=== PATIENT | female | born 1935 | race Caucasian/White ===

== ENCOUNTER 2017-01-03 16:48 | Inpatient (IN) | payer OTHER, BC ==
[2017-01-03 16:59] VITALS: BMI 20.5
--- NOTE | 2017-01-03 17:12 | PDOC ---
History of Present Illness - General History Source: Patient, Family Exam Limitations: No Limitations - History of Present Illness Initial Comments: 01/03/17 18:41 The patient is an 81 year old female with a significant PMH of glaucoma in left eye and mild Alzheimers who presents to the emergency department with loss of balance and generalized weakness beginning approximately yesterday night. The patient reports finding herself on the floor being unable to remember how she got there and unable to stand for about an hour. The patient reports associated lightheadedness beginning about 3 days ago that reached a peak yesterday night. The patient notes that she has fallen 2 or 3 times within the past week without sustaining any injuries, but denies falling yesterday night. The patient was given a cane about 1 year ago to assist her walking, but she has not frequently used it. The patient and her family visited Dr. Joshi (PCP) this morning, who requested that the patient come into the ED. The patient denies chest pain and shortness of breath. Denies fever, chills, nausea, vomit, diarrhea and constipation. Denies dysuria, frequency, urgency and hematuria. Allergies: Sulfonamide antibiotics. Past surgical history: None reported. Social history: Former smoker. No reported alcohol or drug use. PCP: Dr. Joshi (Referred the patient to ED) <Fernando Gr - Last Filed: 01/03/17 18:41> <Carlito Castanon - Last Filed: 01/03/17 19:44> <Elliott Tamez - Last Filed: 01/03/17 19:57> - General Chief Complaint: Lightheaded Stated Complaint: DIZZINESS (PCP SENT) Time Seen by Provider: 01/03/17 17:11 Past History <Fernando Gr - Last Filed: 01/03/17 18:41> <Carlito Castanon - Last Filed: 01/03/17 19:44> - Past Medical History Dementia: Yes (EARLY ALZHEIMERS) Other medical history: GLAUCOMA - Psycho/Social/Smoking Cessation Hx Suicidal Ideation: No Smoking History: Former smoker Have you smoked in the past 12 months: No Information on smoking cessation initiated: No <Elliott Tamez - Last Filed: 01/03/17 19:57> - Past Medical History Allergies/Adverse Reactions: Allergies Allergy/AdvReac Type Severity Reaction Status Date / Time Sulfa (Sulfonamide Allergy Verified 01/03/17 16:53 Antibiotics) Home Medications: Ambulatory Orders Travoprost [Travatan Z] 2.5 ml OP ASDIR 01/03/17 Review of Systems - Review of Systems Constitutional: No: Chills, Fever, Unintentional Wgt. Loss HEENTM: No: Recent change in vision Respiratory: No: Cough, Shortness of Breath Cardiac (ROS): Yes: Lightheadedness. No: Chest Pain ABD/GI: No: Diarrhea, Vomiting : Yes: Dysuria Musculoskeletal: No: Muscle Pain Neurological: Yes: Weakness, Unsteady Gait. No: Headache All Other Systems: Reviewed and Negative <Elliott Tamez - Last Filed: 01/03/17 19:57> *Physical Exam - Vital Signs Last Vital Signs Temp Pulse Resp BP Pulse Ox 98.4 F 90 19 139/78 97 01/03/17 16:52 01/03/17 16:52 01/03/17 16:52 01/03/17 16:52 01/03/17 16:52 - Physical Exam Comments: 01/03/17 18:41 GENERAL: The patient is awake, alert, and fully oriented, in no acute distress. HEAD: Normal with no signs of trauma. EYES: Pupils equal, round and reactive to light, extraocular movements intact, sclera anicteric, conjunctiva clear with no pallor. ENT: (+) Dry mucosa. Ears normal, nares patent, oropharynx clear without exudates. NECK: Normal range of motion, supple without lymphadenopathy, JVD, or masses. LUNGS: Breath sounds equal, clear to auscultation bilaterally. No wheeze/ crackles. HEART: Regular rate and rhythm, normal S1 and S2 without murmur or rub. ABDOMEN: Soft/nontender/nondistended. BS wnl. No guarding or rebound. No palpable masses. No hepatosplenomegaly. EXTREMITIES: Normal range of motion, no edema. No clubbing or cyanosis. No cords, erythema, or tenderness. NEUROLOGICAL: (+) Unsteady gait. Cranial nerves II through XII grossly intact. Normal speech PSYCH: Normal mood, normal affect. SKIN: Warm, Dry, normal turgor, no rashes or lesions noted. <Fernando Gr - Last Filed: 01/03/17 18:41> - Vital Signs Last Vital Signs Temp Pulse Resp BP Pulse Ox 98.4 F 90 19 139/78 97 01/03/17 16:52 01/03/17 16:52 01/03/17 16:52 01/03/17 16:52 01/03/17 16:52 <Carlito Castanon - Last Filed: 01/03/17 19:44> - Vital Signs Last Vital Signs Temp Pulse Resp BP Pulse Ox 98.4 F 90 19 139/78 97 01/03/17 16:52 01/03/17 16:52 01/03/17 16:52 01/03/17 16:52 01/03/17 16:52 <Elliott Tamez - Last Filed: 01/03/17 19:57> Heart Score/ECG Review #1 ECG reviewed & interpreted by me at: 17:58 General ECG Interpretation: Sinus Rhythm, Normal Rate (74), Normal Intervals ( qtc 410), No acute ischemic changes (q wave III/AVF, no ST changes) <Elliott Tamez - Last Filed: 01/03/17 19:57> ED Treatment Course - LABORATORY CBC & Chemistry Diagram: 01/03/17 18:10 01/03/17 18:10 <Fernando Gr - Last Filed: 01/03/17 18:41> - LABORATORY CBC & Chemistry Diagram: 01/03/17 18:10 01/03/17 18:10 - ADDITIONAL ORDERS Additional order review: Laboratory Results 01/03/17 01/03/17 01/03/17 18:12 18:10 18:10 INR Sodium 140 Potassium 3.9 Chloride 105 Carbon Dioxide 27 Anion Gap 8 BUN 21 H Creatinine 0.7 Creat Clearance w eGFR > 60 Random Glucose 88 Calcium 9.0 Magnesium 2.4 Total Bilirubin 0.4 AST 25 ALT 24 Alkaline Phosphatase 81 Creatine Kinase 137 Troponin I < 0.02 Total Protein 6.6 Albumin 3.9 Urine Color Straw Urine Appearance Clear Urine pH 6.0 Urine Protein Negative Urine Glucose (UA) Negative Urine Ketones Negative Urine Blood 1+ H Urine Nitrite Negative Urine Bilirubin Negative Urine Urobilinogen Negative Ur Leukocyte Esterase Trace Urine RBC <1 Urine WBC <1 01/03/17 18:10 INR 1.06 Sodium Potassium Chloride Carbon Dioxide Anion Gap BUN Creatinine Creat Clearance w eGFR Random Glucose Calcium Magnesium Total Bilirubin AST ALT Alkaline Phosphatase Creatine Kinase Troponin I Total Protein Albumin Urine Color Urine Appearance Urine pH Urine Protein Urine Glucose (UA) Urine Ketones Urine Blood Urine Nitrite Urine Bilirubin Urine Urobilinogen Ur Leukocyte Esterase Urine RBC Urine WBC 01/03/17 18:10 RBC 4.13 MCV 93.4 MCHC 34.1 RDW 13.9 MPV 8.7 Neutrophils % 69.8 Lymphocytes % 16.6 Monocytes % 11.3 H Eosinophils % 1.4 Basophils % 0.9 - Medications Given in the ED: ED Medications Discontinued Medications Generic Name Dose Route Start Last Admin Trade Name Freq PRN Reason Stop Dose Admin Sodium Chloride 500 mls @ 500 mls/hr 01/03/17 18:38 01/03/17 19:05 Normal Saline - IV 01/03/17 19:37 500 mls/hr ONCE ONE Administration <Carlito Castanon - Last Filed: 01/03/17 19:44> - LABORATORY CBC & Chemistry Diagram: 01/03/17 18:10 01/03/17 18:10 <Elliott Tamez - Last Filed: 01/03/17 19:57> Medical Decision Making - Medical Decision Making 01/03/17 19:[address] Laird @19:37pm. Awaiting Call back. <Carlito Castanon - Last Filed: 01/03/17 19:44> - Medical Decision Making 01/03/17 18:34 A portion of this note was documented by scribe services under my direction. I have reviewed the details of the note, within reason, and agree with the documentation with the following case summary and management plan written by me. 81-year-old female with history of mild Alzheimer's presents with generalized weakness and unsteady gait for several days. Nonspecific complaints of having difficulty ambulating, felt 2-3 times in the last few days. Denies any head injury, denies any focal weakness, denies any headache. No chest pain or infectious complaints. Vital signs as noted and within normal limits. Exam as noted, occasionally forgetful, neurologically grossly intact but had some difficulty with heel-to-toe ambulation 81-year-old female with new onset weakness over the last few days, gait instability with falls. Most likely metabolic or infectious, seems less likely focal neurologic process. Labs, urinalysis EKG, chest x-ray, head CT IV fluid hydration Reassess, likely admission 01/03/17 19:55 labs wnl: no leukocytosis, chem normal including trop, UA clear. CT without acute pathology. Clinically unchanged. ? microvascular ischemia, ? need for PT eval. Discussed with patient and family, agree with admission given relatively acute change from baseline. Accepted for inpatient med/surg by Dr. Laird, admitting for Dr. Joshi. Will obtain neuro and PT eval. <Elliott Tamez - Last Filed: 01/03/17 19:57> *DC/Admit/Observation/Transfer - Attestations Scribe Attestion: 01/03/17 18:42 Documentation prepared by Fernando Gr, acting as emergency medical service coordinator for Elliott Tamez MD. <Fernando Gr - Last Filed: 01/03/17 18:41> <Carlito Castanon - Last Filed: 01/03/17 19:44> - Discharge Dispostion Admit: Yes <Elliott Tamez - Last Filed: 01/03/17 19:57> Diagnosis at time of Disposition: Frequent falls, Generalized weakness - Discharge Dispostion Condition at time of disposition: Fair - Referrals Referrals: Anaya Joshi [Primary Care Provider] -
[2017-01-03] MEDS ORDERED: SODIUM CHLORIDE 1,000 ML IV ONE (18:07)
[2017-01-03] MEDS ORDERED: SODIUM CHLORIDE 500 ML IV ONE (18:38)
[2017-01-03 18:44] LABS: BASOPHIL 0.9 % (0-2.0); EOSINOPHIL 1.4 % (0-4.5); MCH 31.9 pg (25.7-33.7); MCHC 34.1 g/dl (32.0-36.0); MEAN CELL VOLUME 93.4 fl (80-96); MEAN PLT VOLUME 8.7 fl (7.5-11.1); NEUTROPHILS 69.8 % (42.8-82.8); PLATELET COUNT 171 K/MM3 (134-434); RDW 13.9 % (11.6-15.6); WHITE BLOOD COUNT 4.7 K/mm3 (4.0-10.0)
[2017-01-03 18:49] LABS: URINE APPEARANCE CLEAR; URINE BILIRUBIN NEGATIVE (NEGATIVE); URINE BLOOD 1+ (NEGATIVE); URINE COLOR STRAW; URINE GLUCOSE (UA) NEGATIVE (NEGATIVE); URINE KETONE NEGATIVE (NEGATIVE); URINE LEUK ESTERASE TRACE (NEGATIVE); URINE NITRITE NEGATIVE (NEGATIVE); URINE PROTEIN NEGATIVE (NEGATIVE); URINE UROBILINOGEN NEGATIVE mg/dL (0.2-1.0)
[2017-01-03 18:59] LABS: URINE RBC <1 /hpf (0-3); URINE WBC <1 /hpf (3-5)
[2017-01-03 19:06] LABS: INR 1.06 (0.82-1.09); PROTHROMBIN TIME (PATIENT) 11.7 SEC (9.98-11.88)
[2017-01-03 19:15] LABS: ALBUMIN 3.9 g/dl (3.4-5.0); ANION GAP 8 (8-16); BILIRUBIN,TOTAL 0.4 mg/dL (0.2-1.0); CO2 27 mmol/L (21-32); CPK 137 IU/L (26-192); CREATININE 0.7 mg/dL (0.55-1.02); GLUCOSE,RANDOM 88 mg/dL (74-106); SGOT/AST 25 U/L (15-37); SGPT/ALT 24 U/L (12-78); TOT PROT 6.6 g/dl (6.4-8.2)
[2017-01-03 19:17] LABS: ALK PHOS 81 U/L (45-117); TROPONIN I < 0.02 ng/ml (0.00-0.05)
[2017-01-03] MEDS ORDERED: ACETAMINOPHEN 325 MG TABLET (FP) PO PRN (22:56)
[2017-01-03] MEDS ORDERED: DEXTROSE 5%-0.45% SALINE 1,000 ML IV SCH (23:00)
[2017-01-04 07:30] LABS: BASOPHIL 0.8 % (0-2.0); EOSINOPHIL 1.7 % (0-4.5); MCH 32.1 pg (25.7-33.7); MCHC 34.4 g/dl (32.0-36.0); MEAN CELL VOLUME 93.1 fl (80-96); NEUTROPHILS 69.9 % (42.8-82.8); PLATELET COUNT 149 K/MM3 (134-434); RDW 13.7 % (11.6-15.6); WHITE BLOOD COUNT 4.1 K/mm3 (4.0-10.0)
[2017-01-04 08:01] LABS: ALBUMIN 3.4 g/dl (3.4-5.0); ANION GAP 8 (8-16); CO2 28 mmol/L (21-32); CREATININE 0.6 mg/dL (0.55-1.02); MAGNESIUM 2.2 mg/dL (1.8-2.4); SGOT/AST 21 U/L (15-37); SGPT/ALT 20 U/L (12-78)
[2017-01-04 08:08] LABS: ALK PHOS 68 U/L (45-117); BILIRUBIN,TOTAL 0.5 mg/dL (0.2-1.0); CALCIUM 9.1 mg/dL (8.5-10.1); CHOLESTEROL 203 mg/dL (50-200); GLUCOSE,RANDOM 110 mg/dL (74-106); PHOSPHOROUS 3.1 mg/dL (2.5-4.9); TOT PROT 5.7 g/dl (6.4-8.2)
--- NOTE | 2017-01-04 08:58 | EKG ---
Test Reason : Blood Pressure : / mmHG Vent. Rate : 077 BPM Atrial Rate : 077 BPM P-R Int : 160 ms QRS Dur : 066 ms QT Int : 380 ms P-R-T Axes : 077 -22 053 degrees QTc Int : 430 ms NORMAL SINUS RHYTHM INFERIOR INFARCT (CITED ON OR BEFORE 03-JAN-2017) ABNORMAL ECG WHEN COMPARED WITH ECG OF 03-JAN-2017 17:58, MINIMAL CRITERIA FOR ANTEROSEPTAL INFARCT ARE NO LONGER PRESENT Confirmed by SHARIF CABRERA MD ([id number]) on 01/04/2017 8:57:45 AM Referred By: JOY DICKENS Confirmed By:SHARIF CABRERA MD
--- NOTE | 2017-01-04 09:01 | EKG ---
Test Reason : Blood Pressure : / mmHG Vent. Rate : 074 BPM Atrial Rate : 074 BPM P-R Int : 166 ms QRS Dur : 056 ms QT Int : 370 ms P-R-T Axes : 058 -24 022 degrees QTc Int : 410 ms NORMAL SINUS RHYTHM POSSIBLE LEFT ATRIAL ENLARGEMENT LOW VOLTAGE QRS INFERIOR INFARCT , AGE UNDETERMINED CANNOT RULE OUT ANTEROSEPTAL INFARCT , AGE UNDETERMINED ABNORMAL ECG NO PREVIOUS ECGS AVAILABLE Confirmed by SHARIF CABRERA MD ([id number]) on 01/04/2017 9:00:58 AM Referred By: Confirmed By:SHARIF CABRERA MD
[2017-01-04] MEDS ORDERED: HEPARIN NA (PORCINE) 5,000 UNITS/ML 1ML VIAL SQ SCH (10:00)
[2017-01-04] MEDS ORDERED: PANTOPRAZOLE 20 MG TABLET (FP) PO SCH (10:00)
--- NOTE | 2017-01-04 11:03 | CON.CARD ---
Cardiology Consult (text) - Consultation Consultation Note: cc: fall, trouble with balance hpi: 81 f hx glaucoma, mild dementia, here s/p fall, trouble with balance. Pt reports occasional issues with balance and falls recently. The other night she reports getting up from bed and feeling dizzy and thinks she fell, does not remember well. No cp, sob, palps, pnd, orthopnea, le edema. She denies loc. No hx hrt dz. pmh: per hpi psh: nc social: ex tob fam: no premature cad, scd ros: per hpi; no nvd, fever, cough, dysuria, hematuria, gib, vision changes, chavez , wt loss meds: Home Medications Medication Instructions Recorded Travoprost [Travatan Z] 2.5 ml OP ASDIR 01/03/17 pe: Vital Signs Period Temp Pulse Resp BP Sys/Etienne Pulse Ox Last 24 Hr 97.7 F-98.4 F 69-90 18-20 126-144/69-81 97-98 nad no jvd rrr s1s2 no mrg cta bl nl eff awake, alert appropriate abd nt nd pos bs no jaundice diaphoresis +dp pt no carotid bruits no le e/c/c Laboratory Last Values WBC 4.1 K/mm3 (4.0-10.0) 01/04/17 05:35 RBC 3.96 M/mm3 (3.60-5.2) 01/04/17 05:35 Hgb 12.7 GM/dL (10.7-15.3) 01/04/17 05:35 Hct 36.9 % (32.4-45.2) 01/04/17 05:35 MCV 93.1 fl (80-96) 01/04/17 05:35 MCH 32.1 pg (25.7-33.7) 01/04/17 05:35 MCHC 34.4 g/dl (32.0-36.0) 01/04/17 05:35 RDW 13.7 % (11.6-15.6) 01/04/17 05:35 Plt Count 149 K/MM3 (134-434) 01/04/17 05:35 MPV 9.0 fl (7.5-11.1) 01/04/17 05:35 Neutrophils % 69.9 % (42.8-82.8) 01/04/17 05:35 Lymphocytes % 15.1 % (8-40) 01/04/17 05:35 Monocytes % 12.5 % (3.8-10.2) H 01/04/17 05:35 Eosinophils % 1.7 % (0-4.5) 01/04/17 05:35 Basophils % 0.8 % (0-2.0) 01/04/17 05:35 INR 1.06 (0.82-1.09) 01/03/17 18:10 Sodium 144 mmol/L (136-145) 01/04/17 05:35 Potassium 3.8 mmol/L (3.5-5.1) 01/04/17 05:35 Chloride 108 mmol/L (98-107) H 01/04/17 05:35 Carbon Dioxide 28 mmol/L (21-32) 01/04/17 05:35 Anion Gap 8 (8-16) 01/04/17 05:35 BUN 14 mg/dL (7-18) D 01/04/17 05:35 Creatinine 0.6 mg/dL (0.55-1.02) 01/04/17 05:35 Creat Clearance w eGFR > 60 (>60) 01/04/17 05:35 Random Glucose 110 mg/dL (74-106) H D 01/04/17 05:35 Calcium 9.1 mg/dL (8.5-10.1) 01/04/17 05:35 Phosphorus 3.1 mg/dL (2.5-4.9) 01/04/17 05:35 Magnesium 2.2 mg/dL (1.8-2.4) 01/04/17 05:35 Total Bilirubin 0.5 mg/dL (0.2-1.0) D 01/04/17 05:35 AST 21 U/L (15-37) 01/04/17 05:35 ALT 20 U/L (12-78) 01/04/17 05:35 Alkaline Phosphatase 68 U/L (45-117) 01/04/17 05:35 Creatine Kinase 137 IU/L (26-192) 01/03/17 18:10 Troponin I < 0.02 ng/ml (0.00-0.05) 01/03/17 18:10 Total Protein 5.7 g/dl (6.4-8.2) L 01/04/17 05:35 Albumin 3.4 g/dl (3.4-5.0) 01/04/17 05:35 Triglycerides 55 mg/dL (35-160) 01/04/17 05:35 Cholesterol 203 mg/dL (50-200) H 01/04/17 05:35 Total LDL Cholesterol 75 mg/dL (5-100) 01/04/17 05:35 HDL Cholesterol 110 mg/dL (40-60) H 01/04/17 05:35 Urine Color Straw 01/03/17 18:12 Urine Appearance Clear 01/03/17 18:12 Urine pH 6.0 (5.0-8.0) 01/03/17 18:12 Ur Specific [place] 1.010 (1.005-1.025) 01/03/17 18:12 Urine Protein Negative (NEGATIVE) 01/03/17 18:12 Urine Glucose (UA) Negative (NEGATIVE) 01/03/17 18:12 Urine Ketones Negative (NEGATIVE) 01/03/17 18:12 Urine Blood 1+ (NEGATIVE) H 01/03/17 18:12 Urine Nitrite Negative (NEGATIVE) 01/03/17 18:12 Urine Bilirubin Negative (NEGATIVE) 01/03/17 18:12 Urine Urobilinogen Negative mg/dL (0.2-1.0) 01/03/17 18:12 Ur Leukocyte Esterase Trace (NEGATIVE) 01/03/17 18:12 Urine RBC <1 /hpf (0-3) 01/03/17 18:12 Urine WBC <1 /hpf (3-5) 01/03/17 18:12 Blood Type A POSITIVE 01/03/17 18:10 Antibody Screen Negative 01/03/17 18:10 tele: sr, artifact head ct: no acute findings cxr: clear lungs ecg 01/03/17: sr, nl intervals, no ischemic changes a/p: 81 f hx glaucoma, mild dementia, here s/p fall, trouble with balance. fall, dizzy, balance issues: -no obvious cardiac etiology at present -ecg unremarkable, tele benign -check orthostatic vs -check echo -neuro consulted -consider PT eval
[2017-01-04 15:18] VITALS: BP 138/85; PULSE 76; TEMP 98.7
--- NOTE | 2017-01-04 17:21 | PN ---
Progress Note (short form) - Note Progress Note: patient seen and examined in her room son in law at bedside states clinically at baseline all testing reviewed / discussed with family Vital Signs Period Temp Pulse Resp BP Sys/Etienne Pulse Ox Last 24 Hr 97.7 F-98.7 F 69-86 18-20 126-144/69-85 98-98 neck supple heart S1/S2 regular Lungs clear bilat abd soft non tender ext no edema CBC, BMP 01/04/17 05:35 01/04/17 05:35 Home Medications Medication Instructions Recorded Travoprost [Travatan Z] 2.5 ml OP ASDIR 01/03/17 s/p fall probably mechanical consider arrythmia / neurological event seen by Neuro and Cardio telemetry reviewed -- no findings Plan Ok to d/c home discuss with family safety and follow up
--- NOTE | 2017-01-04 17:34 | CONSULT ---
Consult - text type - Consultation Consultation Note: NEUROLOGY CONSULTATION is greatly appreciated: This 81 yo RH woman with mild OMS lives in an assisted environment. H/O Glaucoma of gtts. Given a cane to stabilize her gait x 1 year. She has had a few falls over the last week and comes in after a fall with amnesia for surrounding events such as prodromal symptoms. No evidence for head trauma or infection. CT of head (reviewed): Moderate, diffuse atrophy with ventricular enlargement and scattered microvascular changes. Cardiology eval unremarkable. BIRDIE: No head trauma. No bruits, cor reg. NEURO: Awake, alert, cooperative. Ox3. Recalls 3 of 3 @ 3. No frontal release findings. CN: II-XII: normal without nystagmus. Motor: Min Right drift. Normal strength and reflexes. Toes downgoing. Sl reduced [id number].Normal reflexes. Toes downgoing. Coord: No FTN dystaxia Sensory: Normal Romberg neg Gait: Slightly wide-based and shuffling. Unsteady with turns. IMP: Mild B/L cerebral dysfunction. Moderate senile gait dyspraxia- possibly out of proportion to OMS Mild Left cerebral accentuation possibly suggesting a lacunar infarct. 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 Suggest: Check B12, TSH MRI of brain (Non-contrast). PT for gait with walker ASA 81 mg qd Neuro f/u as out patient. Thank you very much, Ramses Orona MD
== END 2017-01-04 18:12 | disposition home or self-care (01) | DRG 57 ==
LOC: JER 16:48 → JERBED 19:57 → UNDOADMIN 20:05 → JERBED 20:05 → J4W 23:28
PROVIDERS: ADMIT Family Medicine; ATTEND Family Medicine
DX: G30.8 Other Alzheimer's disease (principal); G91.2 (Idiopathic) normal pressure hydrocephalus; R29.6 Repeated falls; R27.8 Other lack of coordination; F02.80 Dementia in other diseases classified elsewhere, unspecified severity, without behavioral disturbance, psychotic disturbance, mood disturbance, and anxiety; G93.89 Other specified disorders of brain; H40.89 Other specified glaucoma; R53.1 Weakness; Z87.891 Personal history of nicotine dependence
CPT/HCPCS: 36415; 70450-TC; 71020-TC; 80053; 80061; 81003; 81015; 83721; 83735; 84100; 84484; 85025; 85610; 86850; 86900; 86901; 87086; 87186; 93005; 93010; 93306-TC; 99285-25; J1644

== ENCOUNTER 2017-01-21 06:15 | Emergency (ER) | payer OTHER, BC ==
[2017-01-21 06:30] VITALS: BMI 20.5
[2017-01-21] MEDS ORDERED: SODIUM CHLORIDE 0.9% 1000 ML INFUS.BAG IV ONE (07:34)
--- NOTE | 2017-01-21 08:01 | PDOC ---
History of Present Illness - General History Source: Patient Exam Limitations: No Limitations - History of Present Illness Initial Comments: 01/21/17 08:08 81 y/o F with a PMHx of glaucoma, frequent falls presents to the ED with lightheadedness this morning. Patient was able to walk to the bathroom and back to bed, but felt unbalanced and thought she was going to fall. She states the lightheadedness is worsened with lying to sitting up. She called her daughter who called EMS. Patient states it never happened before. There is no clear vertigo. Patient reports some dysuria yesterday. She denies weakness, numbness, tingling. She denies chest pain, SOB. Denies back pain. Denies fever, chills. <Catalina Schafer - Last Filed: 01/21/17 10:02> <Yoselin Vega - Last Filed: 01/21/17 12:26> - General Chief Complaint: Lightheaded Stated Complaint: DIZZINESS Time Seen by Provider: 01/21/17 07:07 Past History <Catalina Schafer - Last Filed: 01/21/17 10:02> - Past Medical History Dementia: Yes (EARLY ALZHEIMERS) - Suicide/Smoking/Psychosocial Hx Smoking History: Never smoked Have you smoked in the past 12 months: No Information on smoking cessation initiated: No Hx Alcohol Use: No Drug/Substance Use Hx: No Substance Use Type: None <Yoselin Vega - Last Filed: 01/21/17 12:26> - Past Medical History Allergies/Adverse Reactions: Allergies Allergy/AdvReac Type Severity Reaction Status Date / Time Sulfa (Sulfonamide Allergy Verified 01/03/17 16:53 Antibiotics) Home Medications: Ambulatory Orders Travoprost [Travatan Z] 2.5 ml OP ASDIR 01/03/17 Cephalexin [Keflex] 500 mg PO TID #21 capsule 01/21/17 Review of Systems - Review of Systems Able to Perform ROS?: Yes Comments:: 01/21/17 08:08 GENERAL/CONSTITUTIONAL: No fever or chills. No weakness. HEAD, EYES, EARS, NOSE AND THROAT: No change in vision. No ear pain or discharge. No sore throat. CARDIOVASCULAR: No chest pain or shortness of breath. RESPIRATORY: No cough, wheezing, or hemoptysis. GASTROINTESTINAL: No nausea, vomiting, diarrhea or constipation. GENITOURINARY: (+) dysuria. No frequency, or other change in urination. MUSCULOSKELETAL: No joint or muscle swelling or pain. No neck or back pain. SKIN: No rash NEUROLOGIC: (+) lightheadedness. No headache, loss of consciousness, or change in strength/sensation. ENDOCRINE: No increased thirst. No abnormal weight change. HEMATOLOGIC/LYMPHATIC: No anemia, easy bleeding, or history of blood clots. ALLERGIC/IMMUNOLOGIC: No hives or skin allergy. <Lizz Schaferobbrittani Unger - Last Filed: 01/21/17 10:02> *Physical Exam - Vital Signs Last Vital Signs Temp Pulse Resp BP Pulse Ox 98.4 F 68 16 139/83 98 01/21/17 07:28 01/21/17 07:28 01/21/17 07:28 01/21/17 07:28 01/21/17 07:28 - Physical Exam Comments: 01/21/17 08:08 GENERAL: Awake, alert, and fully oriented, in no acute distress HEAD: No signs of trauma EYES: PERRLA, EOMI, sclera anicteric, conjunctiva clear ENT: Auricles normal inspection, nares patent, oropharynx clear without exudates. Moist mucosa NECK: Normal ROM, supple, no lymphadenopathy, JVD, or masses LUNGS: Breath sounds equal, clear to auscultation bilaterally. No wheezes, and no crackles HEART: Regular rate and rhythm, normal S1 and S2, no murmurs, rubs or gallops ABDOMEN: Soft, nontender, normoactive bowel sounds. No guarding, no rebound. No masses EXTREMITIES: Normal range of motion, no edema. No clubbing or cyanosis. No cords, erythema, or tenderness NEUROLOGICAL: Cranial nerves II through XII grossly intact. Normal speech, normal gait. Normal xsyryr-ot-lphm. Normal alternating hand movements. Negative Bib-hallpike. Negative Romberg. 5/5 strength. SKIN: Warm, Dry, normal turgor, no rashes or lesions noted. <Lizz Schaferobhan Ute - Last Filed: 01/21/17 10:02> - Vital Signs Last Vital Signs Temp Pulse Resp BP Pulse Ox 98.4 F 68 16 139/83 98 01/21/17 07:28 01/21/17 07:28 01/21/17 07:28 01/21/17 07:28 01/21/17 07:28 <Souleymane Vegaa - Last Filed: 01/21/17 12:26> Heart Score/ECG Review #1 General ECG Interpretation: Sinus Rhythm, Normal Rate (61 bpm), Normal Intervals , No acute ischemic changes <Souleymane Vegaa - Last Filed: 01/21/17 12:26> ED Treatment Course - LABORATORY CBC & Chemistry Diagram: 01/21/17 08:00 01/21/17 08:00 - ADDITIONAL ORDERS Additional order review: Laboratory Results 01/21/17 07:12 POC Glucometer [id number] 01/21/17 07:12 POC Glucometer [id number] - RADIOLOGY Radiograph Interpretation: 01/21/17 10:02 Chest X-Ray Reported by Dr. Carlito Davenport Impression: No evidence of active pulmonary disease. - Medications Given in the ED: ED Medications Discontinued Medications Generic Name Dose Route Start Last Admin Trade Name Freq PRN Reason Stop Dose Admin Sodium Chloride 1,000 ml 01/21/17 07:34 01/21/17 07:48 Normal Saline - IV 01/21/17 07:35 1,000 ml ONCE ONE Administration <Catalina Schafer - Last Filed: 01/21/17 10:02> - LABORATORY CBC & Chemistry Diagram: 01/21/17 08:00 01/21/17 08:00 - ADDITIONAL ORDERS Additional order review: Laboratory Results 01/21/17 07:12 POC Glucometer [id number] 01/21/17 07:12 POC Glucometer [id number] - RADIOLOGY Radiology Studies Ordered: Category Date Time Status CHEST PA & LAT [RAD] Stat Radiology 01/21/17 07:33 Ordered Chest X-Ray Result: No Infiltrates - Medications Given in the ED: ED Medications Discontinued Medications Generic Name Dose Route Start Last Admin Trade Name Freq PRN Reason Stop Dose Admin Sodium Chloride 1,000 ml 01/21/17 07:34 01/21/17 07:48 Normal Saline - IV 01/21/17 07:35 1,000 ml ONCE ONE Administration <Souleymane Vegaa - Last Filed: 01/21/17 12:26> Medical Decision Making - Medical Decision Making 01/21/17 07:55 81 yo F with h/o frequent falls. here with episode of near syncope. pt states she was trying to walk to the bathroom, became very lightheaded. thought she would fall or faint so holding onto roberts. no loc. no cp or palpitations. no f/ c no abd or flank pain. does report recent dysuria. feels better with sitting now, but feels lightheaded with standing. no other complaints. was admitted 2 weeks ago for similar complaints at which time she actually had a fall. on exam awake alert head atraumatic. dry mucous membranes. lungs normal heart rrr nomrg. ab soft ntnd. ext wwp no edema. 2 + dp/ pt pulses symmetric. nuero: normal finger to nose, heel to emmanuel, alt hand movements, gait normal, neg romberg, neg bib hallpike. CN intact , strength 5/5 throughout. differential: uti, anemia, dehydration, dysrhtymia, infection such as pneumonia , mi. plan labs ua urine culture iv hydration, cxr reassess. 01/21/17 11:03 labs unremarkalbe. ua negative only 3 wbc. hydrated normal saline. ekg normal. cxr negative for acute changes. 01/21/17 12:19 pt has been treated for recent uti, but noncompliant. was on ciprofloxacin, not taking. feel s improved followig iv fluids. d/w son in law at bedside. ok with pt going home. told will need someone to stay with patient. have meeting tomorrow to get approval for home health aid payment to be covered by insurance. told to return for worseing symptoms pt seen ambulating here in ED stable. will treat for symptomatic partially treated UTI. with keflex 500 mg tidx 1 week. follow up recommended with pcp. <Yoselin Vega - Last Filed: 01/21/17 12:26> *DC/Admit/Observation/Transfer - Attestations Scribe Attestion: 01/21/17 08:08 Documentation prepared by Catalina Schafer, acting as biomedical engineering internship for Yoselin Vega MD. <Catalina Schafer - Last Filed: 01/21/17 10:02> - Discharge Dispostion Admit: No <Yoselin Vega - Last Filed: 01/21/17 12:26> Diagnosis at time of Disposition: Dehydration, UTI (urinary tract infection) - Discharge Dispostion Disposition: HOME Condition at time of disposition: Improved - Prescriptions Prescriptions: Cephalexin [Keflex] 500 mg PO TID #21 capsule - Referrals Referrals: Chayito Laird MD [Staff Physician] - - Patient Instructions Printed Discharge Instructions: Urinary Tract Infection, Dehydration Additional Instructions: you can stop taking ciprofloxacin. you should take keflex 500 mg three times daily x one week. follow up with Dr. Marin this week. call to schedule. return for feeling dizzy or lightheaded, chest pain or any concerns. all of your labs today are normal. and your ekg and cxr are also normal. see blood work attached. be sure to eat and drink plenty of fluids.
[2017-01-21 08:11] LABS: BASOPHIL 0.8 % (0-2.0); EOSINOPHIL 0.5 % (0-4.5); MCH 31.6 pg (25.7-33.7); MCHC 33.9 g/dl (32.0-36.0); MEAN CELL VOLUME 93.3 fl (80-96); MEAN PLT VOLUME 8.2 fl (7.5-11.1); NEUTROPHILS 76.4 % (42.8-82.8); PLATELET COUNT 170 K/MM3 (134-434); RDW 13.7 % (11.6-15.6)
[2017-01-21 08:34] LABS: ALBUMIN 3.8 g/dl (3.4-5.0); ANION GAP 7 (8-16); BILIRUBIN,TOTAL 0.4 mg/dL (0.2-1.0); CALCIUM 8.2 mg/dL (8.5-10.1); CO2 28 mmol/L (21-32); CREATININE 0.6 mg/dL (0.55-1.02); GLUCOSE,RANDOM 108 mg/dL (74-106); SGOT/AST 15 U/L (15-37); SGPT/ALT 17 U/L (12-78); TOT PROT 6.6 g/dl (6.4-8.2)
[2017-01-21 08:37] LABS: ALK PHOS 82 U/L (45-117); CPK 86 IU/L (26-192); TROPONIN I < 0.02 ng/ml (0.00-0.05)
[2017-01-21 09:34] LABS: URINE APPEARANCE CLEAR; URINE BILIRUBIN NEGATIVE (NEGATIVE); URINE BLOOD NEGATIVE (NEGATIVE); URINE COLOR STRAW; URINE GLUCOSE (UA) NEGATIVE (NEGATIVE); URINE KETONE NEGATIVE (NEGATIVE); URINE LEUK ESTERASE TRACE (NEGATIVE); URINE NITRITE NEGATIVE (NEGATIVE); URINE PROTEIN NEGATIVE (NEGATIVE); URINE UROBILINOGEN NEGATIVE mg/dL (0.2-1.0)
[2017-01-21 09:39] LABS: URINE RBC 1 /hpf (0-3); URINE WBC 3 /hpf (3-5)
--- NOTE | 2017-01-21 11:03 | EKG ---
Test Reason : Blood Pressure : / mmHG Vent. Rate : 061 BPM Atrial Rate : 061 BPM P-R Int : 168 ms QRS Dur : 070 ms QT Int : 420 ms P-R-T Axes : 066 -16 033 degrees QTc Int : 422 ms NORMAL SINUS RHYTHM POSSIBLE LEFT ATRIAL ENLARGEMENT LOW VOLTAGE QRS CANNOT RULE OUT ANTERIOR INFARCT , AGE UNDETERMINED ABNORMAL ECG WHEN COMPARED WITH ECG OF 04-JAN-2017 08:49, NO SIGNIFICANT CHANGE WAS FOUND Confirmed by JASWANT RODRIGUEZ MD ([id number]) on 01/21/2017 11:02:57 AM Referred By: Confirmed By:JASWANT RODRIGUEZ MD
[2017-01-21 12:02] VITALS: BP 138/77; PULSE 88; TEMP 98.2
[2017-01-21] MEDS ORDERED: CEPHALEXIN MONOHYDRATE 250 MG CAPSULE (FP) ONE (12:11)
[2017-01-21] MEDS ORDERED: CEPHALEXIN MONOHYDRATE 500 MG CAPSULE (UD) PO ONE (12:26)
== END 2017-01-21 12:39 | disposition home or self-care (01) ==
LOC: JER 06:15
DX: Z87.898 Personal history of other specified conditions (principal); N39.0 Urinary tract infection, site not specified; Z91.81 History of falling; E86.0 Dehydration; G30.9 Alzheimer's disease, unspecified; F02.80 Dementia in other diseases classified elsewhere, unspecified severity, without behavioral disturbance, psychotic disturbance, mood disturbance, and anxiety
CPT/HCPCS: 36415; 71020-TC; 80053; 81003; 81015; 84484; 85025; 87086; 93005; 93010; 99284-25

== ENCOUNTER 2017-12-04 18:38 | Observation (INO) | payer OTHER, BC ==
--- NOTE | 2017-12-04 19:10 | PDOC ---
History of Present Illness - General Chief Complaint: Weakness Stated Complaint: weakness Time Seen by Provider: 12/04/17 19:06 - History of Present Illness Initial Comments: Tim Apple is an 82yo woman with a PMH of glaucoma and frequent falls who presents with "weakness." She is alone in her room and unable to provide any history relating to her current illness. Her only complaint currently is of suprapubic pain. Past History - Past Medical History Allergies/Adverse Reactions: Allergies Allergy/AdvReac Type Severity Reaction Status Date / Time Sulfa (Sulfonamide Allergy Verified 12/04/17 18:50 Antibiotics) Home Medications: Ambulatory Orders Travoprost [Travatan Z] 2.5 ml OP ASDIR 01/03/17 Acetaminophen [Mapap] 500 mg PO BID 12/04/17 Cholecalciferol (Vitamin D3) [Vitamin D] 2,000 unit PO DAILY 12/04/17 Famotidine 20 mg PO BID 12/04/17 Rivastigmine [Exelon Patch 9.5 mg/24 Hours] 1 each TD DAILY 12/04/17 Sennosides [Senna] 8.6 mg PO HS 12/04/17 COPD: No Dementia: Yes (EARLY ALZHEIMERS) - Suicide/Smoking/Psychosocial Hx Smoking History: Never smoked Have you smoked in the past 12 months: No Information on smoking cessation initiated: No Hx Alcohol Use: No Drug/Substance Use Hx: No Substance Use Type: None Review of Systems - Review of Systems Able to Perform ROS?: No Comments:: Unable to obtain. Patient answers "please help me" to all questions. *Physical Exam - Vital Signs Last Vital Signs Temp Pulse Resp BP Pulse Ox 101.6 F H 93 H 18 156/63 100 12/04/17 18:45 12/04/17 18:45 12/04/17 18:45 12/04/17 18:45 12/04/17 18:45 - Physical Exam Comments: General: No acute distress HEENT: PERRL, EOMI, MMM, voice normal Cards: RRR, no murmur appreciated Pulm: Comfortable on room air, clear to auscultation bilaterally Abd: Soft, nontender, nondistended : No CVA tenderness Ext: Atraumatic. 1+ b/l pitting edema. Strength 5/5 and equal bilaterally Vasc: Extremities WWP. Palpable radial pulse bilaterally Neuro: Alert. Oriented to self only. CN grossly intact, normal speech, motor/ sensory grossly intact and symmetric Psych: Anxious and upset. Asking for help, cannot say what she needs help with ED Treatment Course - LABORATORY CBC & Chemistry Diagram: 12/04/17 20:00 12/04/17 20:00 Medical Decision Making - Medical Decision Making 12/04/17 20:00 Gisela Apple is an 82yo woman with a PMH of glaucoma and ferequent falls who presents to the ED with chief complaint of weakness. She complains only of suprapubic pain. She also asks for help but cannot say what is bothering her or what she needs help with. Per chart review, she appears to have been oriented on previous visits. - Febrile to 101.6 on presentation - Septic workup including CBC, CMP, lactate, cultures, UA, UCx, CXR ordered - No cardiac complaints, but unable to provide history. EKG, trop ordered - No sign of trauma - 1L fluid bolus 12/04/17 22:16 - IV acetaminohpen given for fever - Labs, UA, CXR unremarkable - CT head completed,reviewed. No abnormalities noted but radiology report pending - Plan to admit following CT for AMS workup - Hospitalist paged Seen and discussed with Dr Morocho. *DC/Admit/Observation/Transfer Diagnosis at time of Disposition: Altered mental status Qualifiers: Altered mental status type: unspecified Qualified Code(s): R41.82 - Altered mental status, unspecified - Discharge Dispostion Condition at time of disposition: Fair Decision to Admit order: Yes - Referrals - Patient Instructions - Post Discharge Activity
[2017-12-04] MEDS ORDERED: SODIUM CHLORIDE 1,000 ML IV STA (19:21)
[2017-12-04 20:19] LABS: BASO % 0.4 % (0-2.0); EOS % 0.6 % (0-4.5); HEMATOCRIT 38.6 % (32.4-45.2); HEMOGLOBIN 13.3 GM/dL (10.7-15.3); LYMPH % 7.4 % (8-40); MCHC 34.5 g/dl (32.0-36.0); MEAN CELL VOLUME 92.7 fl (80-96); MEAN PLT VOLUME 8.6 fl (7.5-11.1); MONO % 5.5 % (3.8-10.2); NEUT % 86.1 % (42.8-82.8); PLATELET COUNT 186 K/MM3 (134-434); RBC 4.16 M/mm3 (3.60-5.2); RDW 13.8 % (11.6-15.6); WHITE BLOOD COUNT 6.8 K/mm3 (4.0-10.0)
[2017-12-04 20:21] LABS: VENOUS PC02 44.4 mmHg (38-52); VENOUS PH 7.4 (7.32-7.42)
[2017-12-04 20:31] LABS: INR 1.03 (0.83-1.09); PROTHROMBIN TIME (PATIENT) 11.6 SEC (9.7-13.0)
[2017-12-04] MEDS ORDERED: ACETAMINOPHEN 1000 MG/100 ML VIAL (NON FORMULARY) IVPB ONE (20:31)
[2017-12-04] MEDS ORDERED: ACETAMINOPHEN INJECTION 100 ML IVPB ONE (20:31)
[2017-12-04 20:34] LABS: ACTIVATED PTT 29.7 SECONDS (25.2-36.5)
[2017-12-04 20:38] LABS: URINE APPEARANCE CLEAR; URINE BILIRUBIN NEGATIVE (<2.0 mg/dL); URINE COLOR STRAW; URINE GLUCOSE (UA) NEGATIVE (NEGATIVE); URINE KETONE NEGATIVE (NEGATIVE); URINE LEUK ESTERASE NEGATIVE (NEGATIVE); URINE NITRITE NEGATIVE (NEGATIVE); URINE PROTEIN NEGATIVE (NEGATIVE); URINE UROBILINOGEN NEGATIVE mg/dL (0.2-1.0)
[2017-12-04 20:42] LABS: ALBUMIN 4.2 g/dl (3.4-5.0); ALK PHOS 62 U/L (45-117); ANION GAP 10 (8-16); BILIRUBIN,TOTAL 0.6 mg/dL (0.2-1.0); BLOOD UREA NITROGEN 13 mg/dL (7-18); CALCIUM 9.4 mg/dL (8.5-10.1); CHLORIDE 104 mmol/L (98-107); CO2 29 mmol/L (21-32); CREATININE 0.8 mg/dL (0.55-1.02); GLUCOSE,RANDOM 115 mg/dL (74-106); POTASSIUM 3.8 mmol/L (3.5-5.1); SGOT/AST 24 U/L (15-37); SGPT/ALT 25 U/L (12-78); SODIUM 143 mmol/L (136-145); TOT PROT 6.6 g/dl (6.4-8.2)
--- NOTE | 2017-12-05 00:09 | PDOC ---
Attending Attestation - Resident Resident Name: Marcia Gonzalez - ED Attending Attestation I have performed the following: I have examined & evaluated the patient, The case was reviewed & discussed with the resident, I agree w/resident's findings & plan, Exceptions are as noted - Medical Decision Making 12/05/17 00:06 I, Dr. Ann Morocho, DO, attest that this document has been prepared under my direction and personally reviewed by me in its entirety. I further attest, that it accurately reflects all work, treatment, procedures and medical decision -making performed by me. 12/05/17 00:07 a/p: 82yo female with altered ms -pt with repetative speech and altered ms -pt unable to provide any hx -pt febrile upon arrival in the ED -no meningeal signs -will send labs, ekg, cxr, ua -will give ivf hydration -no meningeal signs on exam -pt arrives with a lee catheter in place 12/05/17 00:10 call placed to the daughter- no answer 12/05/17 00:12 pt with fever and altered MS will need admission pending cultures <Ann Morocho - Last Filed: 12/05/17 00:11> - HPI HPI: 12/05/17 00:15 The patient is an 82-year-old female, with a past medical history of glaucoma, dementia, and frequent falls, who presents to the ED for altered mental status. Patient is unable to provide any history. She was noted to have a fever of 101.6 in the ED. - Physicial Exam PE: 12/05/17 00:22 GENERAL: Awake, in no acute distress HEAD: No signs of trauma EYES: PERRLA, EOMI, sclera anicteric, conjunctiva clear ENT: Auricles normal inspection, hearing grossly normal, nares patent, oropharynx clear without exudates. Moist mucosa NECK: Normal ROM, supple, no lymphadenopathy, JVD, or masses. No meningeal signs. LUNGS: Breath sounds equal, clear to auscultation bilaterally. No wheezes, and no crackles HEART: Regular rate and rhythm, normal S1 and S2, no murmurs, rubs or gallops ABDOMEN: Soft, nontender, normoactive bowel sounds. No guarding, no rebound. No masses GENITOURINARY: (+)Lee catheter is in place. EXTREMITIES: Normal range of motion, no edema. No clubbing or cyanosis. No cords, erythema, or tenderness NEUROLOGICAL: (+)Altered mental status, unable to provide history. SKIN: Warm, Dry, normal turgor, no rashes or lesions noted. <Yumiko Johnson - Last Filed: 12/05/17 00:28> Heart Score/ECG Review - ECG Intrepretation Comment:: 12/05/17 00:11 sinus at 90, nl axis, nl interval, q waves III avf and q waves anterior leads that are age indeterminate - no acute st/t wave findings, baseline artifact <Ann Morocho - Last Filed: 12/05/17 00:11> Attestations - Attestations 12/05/17 00:28 Documentation prepared by Yumiko Johnson, acting as medical coding technician for Ann Morocho DO. <Yumiko Johnson - Last Filed: 12/05/17 00:28>
--- NOTE | 2017-12-05 04:13 | HP ---
CHIEF COMPLAINT: Fever, AMS PCP: [facility] (primary on previous admission) HISTORY OF PRESENT ILLNESS: 82 yo female with PMH mechanical falls, glaucoma, Alzheimer's presents to ED with presumed altered mental status and fever. Pt is only oriented to self and unable to provide accurate history. Hx reviewed from the chart on previous visits. Family is not at the bedside and ED was unable to contact them for further history or current baseline. Pt was here in December 2016 for fall and was AOX3 at that time. Pt does not have any complaints at this time, denies any pain and full review of systems is negative. Denies weakness, fevers, chills, headache, photophobia, neck stiffness, cough, chest pain, SOB, Abdominal pain, nausea, vomiting, diarrhea, abrasions or wounds ER course was notable for: (1) Febrile 101.6, HR 102 (2) WBC 6.8, CXR noted no acute lung pathology, UA clean (3) Recent Travel: unknown PAST MEDICAL HISTORY: via chart review Mechanical falls Glaucoma Alzheimer's PAST SURGICAL HISTORY: unable to obtain Social History: unable to obtain, no toxic habits per chart review Family History: Allergies Sulfa (Sulfonamide Antibiotics) Allergy (Verified 12/04/17 18:50) HOME MEDICATIONS: Home Medications Medication Instructions Recorded Travoprost [Travatan Z] 2.5 ml OP ASDIR 01/03/17 Acetaminophen [Mapap] 500 mg PO BID 12/04/17 Cholecalciferol (Vitamin D3) 2,000 unit PO DAILY 12/04/17 [Vitamin D] Famotidine 20 mg PO BID 12/04/17 Rivastigmine [Exelon Patch 9.5 1 each TD DAILY 12/04/17 mg/24 Hours] Sennosides [Senna] 8.6 mg PO HS 12/04/17 REVIEW OF SYSTEMS CONSTITUTIONAL: Absent: fever, chills, diaphoresis, generalized weakness, malaise, loss of appetite, weight change HEENT: Absent: rhinorrhea, nasal congestion, throat pain, throat swelling, difficulty swallowing, mouth swelling, ear pain, eye pain, visual changes CARDIOVASCULAR: Absent: chest pain, syncope, palpitations, irregular heart rate, lightheadedness , peripheral edema RESPIRATORY: Absent: cough, shortness of breath, dyspnea with exertion, orthopnea, wheezing, stridor, hemoptysis GASTROINTESTINAL: Absent: abdominal pain, abdominal distension, nausea, vomiting, diarrhea, constipation, melena, hematochezia GENITOURINARY: Absent: dysuria, frequency, urgency, hesitancy, hematuria, flank pain, genital pain MUSCULOSKELETAL: Absent: myalgia, arthralgia, joint swelling, back pain, neck pain SKIN: Absent: rash, itching, pallor HEMATOLOGIC/IMMUNOLOGIC: Absent: easy bleeding, easy bruising, lymphadenopathy, frequent infections ENDOCRINE: Absent: unexplained weight gain, unexplained weight loss, heat intolerance, cold intolerance NEUROLOGIC: Absent: headache, focal weakness or paresthesias, dizziness, unsteady gait, seizure, mental status changes, bladder or bowel incontinence PSYCHIATRIC: Absent: anxiety, depression, suicidal or homicidal ideation, hallucinations. PHYSICAL EXAMINATION Vital Signs - 24 hr 12/04/17 12/04/17 12/04/17 18:45 19:45 20:20 Temperature 101.6 F H Pulse Rate 93 H Pulse Rate [ 106 H 102 H Radial] Respiratory 18 20 20 Rate Blood Pressure 156/63 Blood Pressure 168/89 156/93 [Right Arm] O2 Sat by Pulse 100 95 95 Oximetry (%) 12/04/17 12/04/17 12/05/17 20:35 21:23 00:25 Temperature 101.2 F H 100.0 F H 99.1 F Pulse Rate 87 Pulse Rate [ 100 H 102 H Radial] Respiratory 20 20 17 Rate Blood Pressure 137/85 Blood Pressure 168/72 167/70 [Right Arm] O2 Sat by Pulse 94 L 95 92 L Oximetry (%) GENERAL: Alert, oriented only to self, no acute distress HEAD: Normocephalic, atraumatic. EYES: PERRL, EOMI, no scleral icterus EARS, NOSE, THROAT: oropharynx clear without exudates. Moist mucous membranes. NECK: supple without lymphadenopathy LUNGS: CTA b/l, no crackles or wheezes HEART: Regular rate and rhythm, normal S1 and S2 without murmur, rub or gallop. ABDOMEN: Soft, nontender to palpation, normoactive bowel sounds MUSCULOSKELETAL: No bony deformities or tenderness. No CVA tenderness. UPPER EXTREMITIES: 2+ pulses, warm, well-perfused. No cyanosis. No clubbing. No peripheral edema. LOWER EXTREMITIES: 2+ pulses, warm, well-perfused. No calf tenderness. No peripheral edema. NEUROLOGICAL: Cranial nerves II-XII grossly intact. Normal speech though forgetful PSYCHIATRIC: Cooperative. Good eye contact. Appropriate mood and affect. SKIN: Warm, dry, normal turgor, no rashes or lesions noted Laboratory Results - last 24 hr 12/04/17 12/04/17 12/04/17 20:00 20:00 20:00 WBC 6.8 RBC 4.16 Hgb 13.3 Hct 38.6 MCV 92.7 MCH 32.0 MCHC 34.5 RDW 13.8 Plt Count 186 MPV 8.6 Absolute Neuts (auto) 5.9 Neutrophils % 86.1 H Lymphocytes % 7.4 L D Monocytes % 5.5 Eosinophils % 0.6 Basophils % 0.4 Nucleated RBC % 0 PT with INR 11.60 INR 1.03 PTT (Actin FS) 29.7 VBG pH POC VBG pCO2 POC VBG pO2 Mixed VBG HCO3 Sodium 143 Potassium 3.8 Chloride 104 Carbon Dioxide 29 Anion Gap 10 BUN 13 Creatinine 0.8 Creat Clearance w eGFR > 60 Random Glucose 115 H Lactic Acid Calcium 9.4 Total Bilirubin 0.6 AST 24 ALT 25 Alkaline Phosphatase 62 Troponin I Total Protein 6.6 Albumin 4.2 Urine Color Urine Appearance Urine pH Ur Specific [place] Urine Protein Urine Glucose (UA) Urine Ketones Urine Blood Urine Nitrite Urine Bilirubin Urine Urobilinogen Ur Leukocyte Esterase 12/04/17 12/04/17 12/04/17 20:00 20:00 20:10 WBC RBC Hgb Hct MCV MCH MCHC RDW Plt Count MPV Absolute Neuts (auto) Neutrophils % Lymphocytes % Monocytes % Eosinophils % Basophils % Nucleated RBC % PT with INR INR PTT (Actin FS) VBG pH 7.40 POC VBG pCO2 44.4 POC VBG pO2 41.0 Mixed VBG HCO3 27.0 H Sodium Potassium Chloride Carbon Dioxide Anion Gap BUN Creatinine Creat Clearance w eGFR Random Glucose Lactic Acid 1.0 Calcium Total Bilirubin AST ALT Alkaline Phosphatase Troponin I < 0.02 Total Protein Albumin Urine Color Urine Appearance Urine pH Ur Specific [place] Urine Protein Urine Glucose (UA) Urine Ketones Urine Blood Urine Nitrite Urine Bilirubin Urine Urobilinogen Ur Leukocyte Esterase 12/04/17 20:20 WBC RBC Hgb Hct MCV MCH MCHC RDW Plt Count MPV Absolute Neuts (auto) Neutrophils % Lymphocytes % Monocytes % Eosinophils % Basophils % Nucleated RBC % PT with INR INR PTT (Actin FS) VBG pH POC VBG pCO2 POC VBG pO2 Mixed VBG HCO3 Sodium Potassium Chloride Carbon Dioxide Anion Gap BUN Creatinine Creat Clearance w eGFR Random Glucose Lactic Acid Calcium Total Bilirubin AST ALT Alkaline Phosphatase Troponin I Total Protein Albumin Urine Color Straw Urine Appearance Clear Urine pH 7.0 Ur Specific [place] 1.010 Urine Protein Negative Urine Glucose (UA) Negative Urine Ketones Negative Urine Blood Negative Urine Nitrite Negative Urine Bilirubin Negative Urine Urobilinogen Negative Ur Leukocyte Esterase Negative ASSESSMENT/PLAN: 82 yo female with PMH mechanical falls, glaucoma, Alzheimer's presents to ED with presumed altered mental status and fever. Though she met SIRS criteria on arrival, no source of infection is known at this point SIRS and AMS -At this time I am unsure of a source of her fever -Pt has no acute complaints -Unsure of patients current mental status baseline, per chart was much more oriented last december -Family unable to be reached -Seen by Neuro here on previous admission, consult ordered -Would consider LP pending pts current mental status baseline if truly fever and AMS -ID consult ordered -Blood c/s -Lactic acid -Echo -LE Duplex -TSH -RPR -Lyme, Anaplasma, Babesia serology -Blood smear for parasites (less likely with Neutrophilia and no Eosinophilia) -B12 level DVT Prophylaxis -Heparin 5000 Units SQ TID FEN -Fluids: none -Electrolytes: no abnormalities, BMP in AM -Nutrition: regular diet Disposition Observation Visit type - Emergency Visit Emergency Visit: Yes ED Registration Date: 12/04/17 Care time: The patient presented to the Emergency Department on the above date and was hospitalized for further evaluation of their emergent condition. - New Patient This patient is new to me today: Yes Date on this admission: 12/05/17 - Critical Care Critical Care patient: No Hospitalist Screening - Colonoscopy Questionnaire Colonoscopy Questionnaire: Colonoscopy Questionnaire - Patient: 50 - 75 years old and never had a screening colonoscopy: No History of colon or rectal polyps, or CA: No History of IBD, Crohn's disease or UC: No History of abdominal radiation therapy as a child: No - Relative: 1 with colon or rectal CA, or polyps at age 60 or younger: No Colon or rectal CA diagnosed at age 45 or younger: No Multiple relatives with colon or rectal CA: No - Outcome: Screening Result: Negative Screen
--- NOTE | 2017-12-05 04:21 | PN ---
Teaching Attending Note Name of Resident: Ignacio Aguillon ATTENDING PHYSICIAN STATEMENT I saw and evaluated the patient. Chart, data, imaging reviewed. I reviewed the resident's note and discussed the case with the resident. I agree with the resident's findings and plan as documented. SUBJECTIVE: 82 yo female with PMH mechanical falls, glaucoma, Alzheimer's brought in by family for altered mental status. Patient found to have fever and borderline tachycardia in ER. Pt was oriented to person but not to place or time. She did not have any complaints when I saw her. OBJECTIVE: Last Vital Signs Temp Pulse Resp BP Pulse Ox 99.1 F 87 17 137/85 92 L 12/05/17 00:25 12/05/17 00:25 12/05/17 00:25 12/05/17 00:25 12/05/17 00:25 general- nontoxic, NAD heent -at, moist oral mucosa, head atruamatic neck -supple cv -s1+s2+RRR Chest- clear abdomen- soft, BS+, no masses appreciated ext- no pedal edema skin - no rashes seen Abnormal Lab Results 12/04/17 12/04/17 12/04/17 20:00 20:00 20:10 Neutrophils % 86.1 H Lymphocytes % 7.4 L D Mixed VBG HCO3 27.0 H Random Glucose [address] reviewed, + brain atrophy, neg for acute insults CXR reviewed by me, no infiltrates seen ASSESSMENT AND PLAN: #82yo woman with baseline dementia and unknown baseline mental status, incidentally found to have fever, SIRS+ but no clear source of infection. UA wnl and do not suspect UTI. Head CT without any acute insults. -observation -Neuro consult for LP to r/o meningitis -TSH -Vit b12 -blood cultures -syphilis serology -transthoracic echo - to r/o vegetations -Resp multiplex PCR . -blood parasite smear -Lyme serology -fall precautions -bed rest -call family in to find out baseline mental status -heparin sc for dvt ppx
[2017-12-05] MEDS ORDERED: HEPARIN NA (PORCINE) 5,000 UNITS/ML 1ML VIAL ONE (06:12)
[2017-12-05] MEDS: HEPARIN NA (PORCINE) 5,000 UNITS/ML 1ML VIAL SQ SCH ×3 (06:15→21:58)
[2017-12-05 07:23] LABS: BASO % 0.6 % (0-2.0); HEMATOCRIT 37.7 % (32.4-45.2); HEMOGLOBIN 13.2 GM/dL (10.7-15.3); LYMPH % 9.1 % (8-40); MCH 32.4 pg (25.7-33.7); MCHC 34.9 g/dl (32.0-36.0); MEAN CELL VOLUME 92.8 fl (80-96); MEAN PLT VOLUME 8.8 fl (7.5-11.1); MONO % 8.3 % (3.8-10.2); PLATELET COUNT 172 K/MM3 (134-434); RBC 4.06 M/mm3 (3.60-5.2); RDW 13.9 % (11.6-15.6); WHITE BLOOD COUNT 6.4 K/mm3 (4.0-10.0)
[2017-12-05 08:40] LABS: CHLORIDE 105 mmol/L (98-107); POTASSIUM 3.7 mmol/L (3.5-5.1); SODIUM 144 mmol/L (136-145)
[2017-12-05 08:55] LABS: ALBUMIN 3.9 g/dl (3.4-5.0); ALK PHOS 60 U/L (45-117); ANION GAP 11 (8-16); BILIRUBIN,TOTAL 0.7 mg/dL (0.2-1.0); BLOOD UREA NITROGEN 9 mg/dL (7-18); CALCIUM 9.2 mg/dL (8.5-10.1); CO2 28 mmol/L (21-32); CREATININE 0.7 mg/dL (0.55-1.02); GLUCOSE,RANDOM 102 mg/dL (74-106); PHOSPHOROUS 2.6 mg/dL (2.5-4.9); SGOT/AST 24 U/L (15-37); SGPT/ALT 23 U/L (12-78); TOT PROT 6.4 g/dl (6.4-8.2)
--- NOTE | 2017-12-05 14:03 | ECHO ---
Name: ARLENE GAGNON Exam:Adult Echocardiogram Study Date: 12/05/2017 09:49 AM Age: 82 yrs Reason For Study: FEVER AMS UNKNOWN SOURCE Height: 62 in Weight: 140 lb BSA: 1.6 m2 MMode/2D Measurements & Calculations IVSd: 0.97 cm Ao root diam: 2.6 cm LVIDd: 3.3 cm LA dimension: 2.5 cm LVIDs: 2.1 cm LVPWd: 0.75 cm EDV(Teich): 43.0 ml ESV(Teich): 14.7 ml Doppler Measurements & Calculations MV E max rodney: 49.4 cm/sec MR max rodney: 241.6 cm/sec MV A max rodney: 78.5 cm/sec MR max P.4 mmHg MV E/A: 0.63 TR max rodney: 223.7 cm/sec Med Peak E' Rodney: 4.7 cm/sec TR max P.3 mmHg Med E/e': 10.5 Lat Peak E' Rodney: 5.5 cm/sec Lat E/e': 9.0 Procedure A complete two-dimensional transthoracic echocardiogram was performed (2D, M-mode, Doppler and color flow Doppler). Left Ventricle The left ventricular size, thickness and function are normal. Ejection Fraction = 60-65%. The left ve ntricular wall motion is normal. Right Ventricle The right ventricle is normal in size and function. Atria Normal left and right atrial size and function. Mitral Valve There is trace mitral regurgitation. Tricuspid Valve There is trace tricuspid regurgitation. Aortic Valve No hemodynamically significant valvular aortic stenosis. No aortic regurgitation is present. Pulmonic Valve There is no pulmonic valvular regurgitation. Great Vessels The aortic root is normal size. Pericardium/Pleura There is no pericardial effusion. Interpretation Summary The left ventricular size, thickness and function are normal. The right ventricle is normal in size and function. There is trace mitral regurgitation. There is trace tricuspid regurgitation. MD James Root 12/05/2017 02:03 PM
--- NOTE | 2017-12-05 15:38 | CONSULT ---
Consult - text type - Consultation Consultation Note: NEUROLOGY CONSULTATION is greatly appreciated: Events reviewed and patient examined in the "cardiac cath" annex of the ED. This 82 yo RH woman is in assisted living at [facility] with h/o Alzheimer's disease , glaucoma, GERD and OP. Maintained on : travoprost; Acetaminophen; Cholecalciferol; Famotidine; Rivastigmine Patch 9.5 mg/24 Hours; and Sennosides. H/O Multiple falls. Now admitted with increased confusion and fever (101.6F). CT of head (reviewed): Marked atrophy and ex vacuo ventricular dilatation, scattered microvascular changes, calcified basilar artery. No traumatic changes. Pt. c/o plevic pain. Denies GARVIN or neck pain. Labs unremarkable including UA, B12, TSH and routines. BIRDIE: No evidence of external head trauma or falls. Neck supple. Kernig's neg. Cor reg. No bruits. NEURO: Awake, alert, cooperative. Ox "here." No month or year. No presidents. Speech sparse but fluent. + Glabella, snout and symmetrical grasps. CN II-XII: Normal. Motor: No drift or tremor. Normal strength. Sl increased tone. Normal reflexes. Toes downgoing. Coord: No obvious FTN dystaxia. Sensory: Pt. feels touch and vibration throughout. Gait: not tested. IMP: Moderately severe, B/L cerebral dysfunction (OMS/chronic features) C/W Alzheimers Disease. R/O Toxic metabobolic encephalopathy as cause of possible worsening SUGGEST: Check ESR, CRP. Monitor temps. ? Associated with pelvic pain? Last BM? R/O occult infection Mobilize OO Bed to chair Continue Exelon Patch 9.5 mg/day. When stable, as out patient, could consider addition of Memantine 5 mg PO BID with food. Thank you very much, Ramses Orona MD
--- NOTE | 2017-12-05 15:58 | PN ---
Teaching Attending Note Name of Resident: Airam James ATTENDING PHYSICIAN STATEMENT I saw and evaluated the patient. I reviewed the resident's note and discussed the case with the resident. I agree with the resident's findings and plan as documented. SUBJECTIVE:asymptomatic. states she was sent here to get better however does not know where she is. pt is a poor historian but reports no CP, SOB, fever, chills, N/V/C/D, GARVIN, neck pain, photophobia, dysuria or urinary frequency as per report from SNF she was sent here for progressively worsening confusion and questionable slurred speech. she also had a fever there. they report her baseline is A&O x1 OBJECTIVE: Last Vital Signs Temp Pulse Resp BP Pulse Ox 98.8 F 98 H 18 129/73 98 12/05/17 14:00 12/05/17 14:00 12/05/17 14:00 12/05/17 14:00 12/05/17 09:40 General NAD A&O x1 (self only) HEENT no nystagmus, EOMI no photophobia no neck stiffness neg brudinski sign CV S1 S2 RRR no murmrur/rub/gallop Lungs CTA B/L no wheezing/rales/rhonchi Abdomen soft slightly distended dull to percussion no rebound or guarding Extrremities no pedal edema skin no rashes no lesions. no bug bites neuro Cn grossly intact. does not follow commands. strength decreased but equal in all 4 extremities strength grossly intact. no facial asymmetry no slurred speech ASSESSMENT AND PLAN: 82yo F with PMH frequent falls and Alzheimer presented to the Er with acute metabolic encephalopathy 1. Acute Metabolic encephalopathy- currently appears to be at baseline from reports from [facility] head CT negative for acute pathology. workup done here so far is negative. TSH/Vit B12/folate/electrolytes/BUN. can check ammonia level as well for completeness but low concern. neuro consulted 2. SIRS- Tm 101.6 with tachycardia. no suspected source. could consider menningitis in setting of AMS however will need to obtain more detailed of how patient differs from baseline. will d/w neuro if LP should be obtained in light of no source if pt is considered more confused. Tick borne titers are pending. doppler pending. echo for endocarditis? pending. UA and CXR negative. will hold abx at this time 3. Alzheimer- will confirm home meds and re-start 4. DVT ppx- hep sq
[2017-12-05 18:32] VITALS: BMI 21.2
--- NOTE | 2017-12-05 19:06 | PN ---
Physical Exam: SUBJECTIVE: Patient seen and examined this morning in the ED. Patient denies fevers, chills, chest pain, SOB, nausea vomiting, diarrhea, constipation, headaches, belly pain, dysuria. Spoke with Daughter when she visited who confirm's patient is more confused than her normal baseline of AOx1 to person only. OBJECTIVE: Vital Signs Period Temp Pulse Resp BP Sys/Etienne Pulse Ox Last 24 Hr 98.8 F-101.6 F 82-106 17-20 129-168/63-93 92-100 GENERAL: The patient is awake and alert, in no acute distress. EYES: PERRL, EOMI THROAT: Oropharynx clear without exudates, moist mucous membranes. LUNGS: Breath sounds equal, clear to auscultation bilaterally, no wheezes, no crackles HEART: Regular rate and rhythm, S1, S2 without murmur, rub or gallop. ABDOMEN: Soft, nontender, nondistended, normoactive bowel sounds EXTREMITIES: 2+ pulses, no edema. NEUROLOGICAL: Decreased strength in all 4 extremities, C5-T1 and L4-S1 sensation grossly intact, No slurred speech noted SKIN: No rashes, lesions or bug bites noted Laboratory Results - last 24 hr 12/04/17 12/04/17 12/04/17 20:00 20:00 20:00 WBC 6.8 RBC 4.16 Hgb 13.3 Hct 38.6 MCV 92.7 MCH 32.0 MCHC 34.5 RDW 13.8 Plt Count 186 MPV 8.6 Absolute Neuts (auto) 5.9 Neutrophils % 86.1 H Lymphocytes % 7.4 L D Monocytes % 5.5 Eosinophils % 0.6 Basophils % 0.4 Nucleated RBC % 0 PT with INR 11.60 INR 1.03 PTT (Actin FS) 29.7 VBG pH POC VBG pCO2 POC VBG pO2 Mixed VBG HCO3 Sodium 143 Potassium 3.8 Chloride 104 Carbon Dioxide 29 Anion Gap 10 BUN 13 Creatinine 0.8 Creat Clearance w eGFR > 60 Random Glucose 115 H Lactic Acid Calcium 9.4 Phosphorus Magnesium Total Bilirubin 0.6 AST 24 ALT 25 Alkaline Phosphatase 62 Troponin I C-Reactive Protein Total Protein 6.6 Albumin 4.2 Vitamin B12 TSH Urine Color Urine Appearance Urine pH Ur Specific [place] Urine Protein Urine Glucose (UA) Urine Ketones Urine Blood Urine Nitrite Urine Bilirubin Urine Urobilinogen Ur Leukocyte Esterase RPR Titer 12/04/17 12/04/17 12/04/17 20:00 20:00 20:10 WBC RBC Hgb Hct MCV MCH MCHC RDW Plt Count MPV Absolute Neuts (auto) Neutrophils % Lymphocytes % Monocytes % Eosinophils % Basophils % Nucleated RBC % PT with INR INR PTT (Actin FS) VBG pH 7.40 POC VBG pCO2 44.4 POC VBG pO2 41.0 Mixed VBG HCO3 27.0 H Sodium Potassium Chloride Carbon Dioxide Anion Gap BUN Creatinine Creat Clearance w eGFR Random Glucose Lactic Acid 1.0 Calcium Phosphorus Magnesium Total Bilirubin AST ALT Alkaline Phosphatase Troponin I < 0.02 C-Reactive Protein Total Protein Albumin Vitamin B12 TSH Urine Color Urine Appearance Urine pH Ur Specific [place] Urine Protein Urine Glucose (UA) Urine Ketones Urine Blood Urine Nitrite Urine Bilirubin Urine Urobilinogen Ur Leukocyte Esterase RPR Titer 12/04/17 12/05/17 12/05/17 20:20 05:00 06:30 WBC 6.4 RBC 4.06 Hgb 13.2 Hct 37.7 MCV 92.8 MCH 32.4 MCHC 34.9 RDW 13.9 Plt Count 172 MPV 8.8 Absolute Neuts (auto) 5.1 Neutrophils % 80.0 Lymphocytes % 9.1 D Monocytes % 8.3 Eosinophils % 2.0 D Basophils % 0.6 Nucleated RBC % 0 PT with INR INR PTT (Actin FS) VBG pH POC VBG pCO2 POC VBG pO2 Mixed VBG HCO3 Sodium Potassium Chloride Carbon Dioxide Anion Gap BUN Creatinine Creat Clearance w eGFR Random Glucose Lactic Acid Calcium Phosphorus Magnesium Total Bilirubin AST ALT Alkaline Phosphatase Troponin I C-Reactive Protein Total Protein Albumin Vitamin B12 TSH Urine Color Straw Urine Appearance Clear Urine pH 7.0 Ur Specific [place] 1.010 Urine Protein Negative Urine Glucose (UA) Negative Urine Ketones Negative Urine Blood Negative Urine Nitrite Negative Urine Bilirubin Negative Urine Urobilinogen Negative Ur Leukocyte Esterase Negative RPR Titer Nonreactive 12/05/17 12/05/17 12/05/17 06:30 06:30 16:20 WBC RBC Hgb Hct MCV MCH MCHC RDW Plt Count MPV Absolute Neuts (auto) Neutrophils % Lymphocytes % Monocytes % Eosinophils % Basophils % Nucleated RBC % PT with INR INR PTT (Actin FS) VBG pH POC VBG pCO2 POC VBG pO2 Mixed VBG HCO3 Sodium 144 Potassium 3.7 Chloride 105 Carbon Dioxide 28 Anion Gap 11 BUN 9 Creatinine 0.7 Creat Clearance w eGFR > 60 Random Glucose 102 Lactic Acid Calcium 9.2 Phosphorus 2.6 Magnesium 2.0 Total Bilirubin 0.7 AST 24 ALT 23 Alkaline Phosphatase 60 Troponin I C-Reactive Protein 5.5 H Total Protein 6.4 Albumin 3.9 Vitamin B12 482 TSH 1.48 Urine Color Urine Appearance Urine pH Ur Specific [place] Urine Protein Urine Glucose (UA) Urine Ketones Urine Blood Urine Nitrite Urine Bilirubin Urine Urobilinogen Ur Leukocyte Esterase RPR Titer Active Medications Acetaminophen (Tylenol -) 325 mg PO BID [facility] Heparin Sodium (Porcine) (Heparin -) 5,000 unit SQ TID [facility] Last Admin: 12/05/17 15:02 Dose: 5,000 unit IMAGING: - CXR (12/04): No acute disease. - CT Head (12/04): No evidence of acute intracranial pathology. - ECHO (12/04): LV Size, thickness and function are normal. RV is normal in size and function. Trace MR, Trace TR ASSESSMENT/PLAN: 82 y/o F with PMHx mechanical falls, glaucoma, Alzheimer's presents to ED with presumed altered mental status and fever. Though she met SIRS criteria on arrival, no source of infection was found. 1. Acute Metabolic Encephalopathy - Patient presents with Increased confusion from baseline from [facility], Daughter confirmed patient is more confused - ROS negative except that patient mentions she doesnt feel like herself - CXR (12/04): No acute disease. - CT Head (12/04): No evidence of acute intracranial pathology. - VBG: pH 7.40, pCO2 44.4, pO2 41.0, HCO3 27.0 H - Troponin < 0.02 - CRP elevated at 5.5, pending ESR - B12 and TSH WNL - RPR Nonreactive - Extensive workup as noted by labs above has been negative so far - Neurology (Dr. Orona) consulted, Appreciate rec's, Check ESR, CRP, R/O occult infection, Mobilize Out of Bed to chair, Monitor temps, Continue Exelon Patch 9.5 mg/day; When stable, as out patient, could consider addition of Memantine 5 mg PO BID with food. 2. SIRS - Temperature 101.6 F, HR 106 - Lactic acid 1.0, WBC 6.4 - Unable to find a source up to this point - Can consider LP pending neuro rec's - Some labwork still pending including tick borne illnesses (Lyme, Anaplasma, Babesia serology) - Duplex Both legs pending - CXR (12/04): No acute disease. - ECHO (12/04): LV Size, thickness and function are normal. RV is normal in size and function. Trace MR, Trace TR - UA: Negative - Blood and Urine Culture pending - Respiratory virus PCR pending 3. Alzheimers disease - Will confirm home meds and then restart 4. PPx - DVT: Heparin 5,000 unit SQ TID 5. FEN - PO Fluids - Lytes wnl, replete as needed - Regular diet Dispo: Observation Visit type - Emergency Visit Emergency Visit: Yes ED Registration Date: 12/05/17 Care time: The patient presented to the Emergency Department on the above date and was hospitalized for further evaluation of their emergent condition. - New Patient This patient is new to me today: Yes Date on this admission: 12/05/17 - Critical Care Critical Care patient: No
[2017-12-05] MEDS: ACETAMINOPHEN 325 MG TABLET (FP) PO SCH (21:57)
[2017-12-06] MEDS: HEPARIN NA (PORCINE) 5,000 UNITS/ML 1ML VIAL SQ SCH ×3 (06:47→23:54)
[2017-12-06 07:21] LABS: BASO % 0.9 % (0-2.0); EOS % 3.5 % (0-4.5); HEMATOCRIT 41.2 % (32.4-45.2); HEMOGLOBIN 14.2 GM/dL (10.7-15.3); LYMPH % 19.8 % (8-40); MCH 31.9 pg (25.7-33.7); MCHC 34.5 g/dl (32.0-36.0); MEAN CELL VOLUME 92.4 fl (80-96); MONO % 10.3 % (3.8-10.2); NEUT % 65.5 % (42.8-82.8); PLATELET COUNT 193 K/MM3 (134-434); RBC 4.46 M/mm3 (3.60-5.2); RDW 13.9 % (11.6-15.6); WHITE BLOOD COUNT 5.2 K/mm3 (4.0-10.0)
[2017-12-06 07:38] LABS: ALBUMIN 4.1 g/dl (3.4-5.0); ANION GAP 10 (8-16); BILIRUBIN,TOTAL 0.6 mg/dL (0.2-1.0); BLOOD UREA NITROGEN 12 mg/dL (7-18); CALCIUM 9.5 mg/dL (8.5-10.1); CHLORIDE 103 mmol/L (98-107); CO2 30 mmol/L (21-32); CREATININE 0.8 mg/dL (0.55-1.02); GLUCOSE,RANDOM 96 mg/dL (74-106); MAGNESIUM 2.3 mg/dL (1.8-2.4); PHOSPHOROUS 3.1 mg/dL (2.5-4.9); POTASSIUM 3.4 mmol/L (3.5-5.1); SGOT/AST 27 U/L (15-37); SGPT/ALT 27 U/L (12-78); SODIUM 143 mmol/L (136-145)
[2017-12-06 07:39] LABS: ALK PHOS 69 U/L (45-117)
--- NOTE | 2017-12-06 08:23 | PN ---
Teaching Attending Note Name of Resident: Airam James ATTENDING PHYSICIAN STATEMENT I saw and evaluated the patient. I reviewed the resident's note and discussed the case with the resident. I agree with the resident's findings and plan as documented. SUBJECTIVE: OBJECTIVE: Vital Signs Temperature 98.1 F 12/06/17 06:00 Pulse Rate 71 12/06/17 06:00 Respiratory Rate 18 12/06/17 06:00 Blood Pressure 122/73 12/06/17 06:00 O2 Sat by Pulse Oximetry (%) 95 12/06/17 03:00 CBCD WBC 5.2 K/mm3 (4.0-10.0) 12/06/17 07:10 RBC 4.46 M/mm3 (3.60-5.2) 12/06/17 07:10 Hgb 14.2 GM/dL (10.7-15.3) 12/06/17 07:10 Hct 41.2 % (32.4-45.2) 12/06/17 07:10 MCV 92.4 fl (80-96) 12/06/17 07:10 MCHC 34.5 g/dl (32.0-36.0) 12/06/17 07:10 RDW 13.9 % (11.6-15.6) 12/06/17 07:10 Plt Count 193 K/MM3 (134-434) 12/06/17 07:10 MPV 9.0 fl (7.5-11.1) 12/06/17 07:10 CMP Sodium 143 mmol/L (136-145) 12/06/17 05:30 Potassium 3.4 mmol/L (3.5-5.1) L 12/06/17 05:30 Chloride 103 mmol/L (98-107) 12/06/17 05:30 Carbon Dioxide 30 mmol/L (21-32) 12/06/17 05:30 Anion Gap 10 (8-16) 12/06/17 05:30 BUN 12 mg/dL (7-18) 12/06/17 05:30 Creatinine 0.8 mg/dL (0.55-1.02) 12/06/17 05:30 Creat Clearance w eGFR > 60 (>60) 12/06/17 05:30 Random Glucose 96 mg/dL (74-106) 12/06/17 05:30 Calcium 9.5 mg/dL (8.5-10.1) 12/06/17 05:30 Total Bilirubin 0.6 mg/dL (0.2-1.0) 12/06/17 05:30 AST 27 U/L (15-37) 12/06/17 05:30 ALT 27 U/L (12-78) 12/06/17 05:30 Alkaline Phosphatase 69 U/L (45-117) 12/06/17 05:30 Total Protein 7.0 g/dl (6.4-8.2) 12/06/17 05:30 Albumin 4.1 g/dl (3.4-5.0) 12/06/17 05:30 CARDIAC ENZYMES Troponin I < 0.02 ng/ml (0.00-0.05) 12/04/17 20:00 Current Medications Generic Name Dose Route Start Last Admin Trade Name Freq PRN Reason Stop Dose Admin Acetaminophen 325 mg 12/05/17 22:00 12/05/17 21:57 Tylenol - PO 325 mg BID VERENA Administration Heparin Sodium (Porcine) 5,000 unit 12/05/17 06:00 12/06/17 06:47 Heparin - SQ 5,000 unit TID VERENA Administration Home Medications Medication Instructions Recorded Travoprost [Travatan Z] 2.5 ml OP ASDIR 01/03/17 Acetaminophen [Mapap] 500 mg PO BID 12/04/17 Cholecalciferol (Vitamin D3) 2,000 unit PO DAILY 12/04/17 [Vitamin D] Famotidine 20 mg PO BID 12/04/17 Rivastigmine [Exelon Patch 9.5 1 each TD DAILY 12/04/17 mg/24 Hours] Sennosides [Senna] 8.6 mg PO HS 12/04/17 Microbiology 12/04/17 20:20 Urine - Urine - Catheterized Urine Culture - Preliminary Group D Strep Or Entero Coccus 12/04/17 19:50 Blood - Peripheral Venous Blood Culture - Preliminary NO GROWTH OBTAINED AFTER 24 HOURS, INCUBATION TO CONTINUE FOR 4 DAYS. 12/04/17 20:00 Blood - Peripheral Venous Blood Culture - Preliminary NO GROWTH OBTAINED AFTER 24 HOURS, INCUBATION TO CONTINUE FOR 4 DAYS. 12/05/17 05:00 Nasopharyngeal Swab Respiratory Virus (PCR) - Preliminary General NAD A&O x1 (self only) HEENT no nystagmus, EOMI no photophobia no neck stiffness neg brudinski sign CV S1 S2 RRR no murmrur/rub/gallop Lungs CTA B/L no wheezing/rales/rhonchi Abdomen soft slightly distended dull to percussion no rebound or guarding Extrremities no pedal edema skin no rashes no lesions. no bug bites neuro Cn grossly intact. does not follow commands. strength decreased but equal in all 4 extremities strength grossly intact. no facial asymmetry no slurred speech ASSESSMENT AND PLAN: 82yo F with PMH frequent falls and Alzheimer presented to the Er with acute metabolic encephalopathy 1. Acute Metabolic encephalopathy- currently appears to be at baseline from reports from [facility] head CT negative for acute pathology. workup done here so far is negative. TSH/Vit B12/folate/electrolytes/BUN. can check ammonia level as well for completeness but low concern. neuro consulted 2. SIRS- Tm 101.6 with tachycardia. no suspected source. could consider menningitis in setting of AMS however will need to obtain more detailed of how patient differs from baseline. will d/w neuro if LP should be obtained in light of no source if pt is considered more confused. Tick borne titers are pending. doppler pending. echo for endocarditis? pending. UA and CXR negative. will hold abx at this time 3. Alzheimer- will confirm home meds and re-start 4. DVT ppx- hep sq
[2017-12-06] MEDS: ACETAMINOPHEN 325 MG TABLET (FP) PO SCH ×3 (09:59→23:54)
[2017-12-06] MEDS ORDERED: KCL 10 MEQ IVPB 10 MEQ/100 ML INFUS.BAG IVPB SCH (10:30)
[2017-12-06] MEDS ORDERED: DEXTROSE 5%-WATER - 50 ML IVPB ONE (11:21)
[2017-12-06] MEDS ORDERED: cefTRIAXone SODIUM 1 GM VIAL ONE (11:21)
[2017-12-06] MEDS: CEFTRIAXONE 1 GM in DEXTROSE 5%-WATER - 50 ML IVPB SCH (11:26)
[2017-12-06] MEDS: LACTOBACILLUS ACIDOPHILUS 1 TABLET PO SCH (11:26)
--- NOTE | 2017-12-06 18:24 | PN ---
Physical Exam: SUBJECTIVE: Patient seen and examined this morning at her bedside. Improved. Feels less confused today. Spoke with daughter who would like to have patient [facility], She doesnt feel her mother should be hospitalized for a UTI. Denies fevers, chills, chest pain, SOB, nausea, vomiting OBJECTIVE: Vital Signs Period Temp Pulse Resp BP Sys/Etienne Pulse Ox Last 24 Hr 98.1 F-99 F 71-97 18-18 109-147/71-90 94-96 GENERAL: The patient is awake and alert to person and location, in no acute distress. EYES: PERRL, EOMI THROAT: Oropharynx clear without exudates, moist mucous membranes. LUNGS: Breath sounds equal, clear to auscultation bilaterally, no wheezes, no crackles HEART: Regular rate and rhythm, S1, S2 without murmur, rub or gallop. ABDOMEN: Soft, nontender, nondistended, normoactive bowel sounds EXTREMITIES: 2+ pulses, no edema. NEUROLOGICAL: Decreased strength in all 4 extremities, C5-T1 and L4-S1 sensation grossly intact, No slurred speech noted SKIN: No rashes, lesions or bug bites noted Laboratory Results - last 24 hr 12/05/17 12/05/17 12/06/17 05:00 13:52 05:30 WBC RBC Hgb Hct MCV MCH MCHC RDW Plt Count MPV Absolute Neuts (auto) Neutrophils % Lymphocytes % Monocytes % Eosinophils % Basophils % Nucleated RBC % ESR 13 Sodium 143 Potassium 3.4 L Chloride 103 Carbon Dioxide 30 Anion Gap 10 BUN 12 Creatinine 0.8 Creat Clearance w eGFR > 60 Random Glucose 96 Calcium 9.5 Phosphorus 3.1 Magnesium 2.3 Total Bilirubin 0.6 AST 27 ALT 27 Alkaline Phosphatase 69 Ammonia Total Protein 7.0 Albumin 4.1 Lyme Screen IgG & IgM <0.91 12/06/17 12/06/17 06:15 07:10 WBC 5.2 RBC 4.46 Hgb 14.2 Hct 41.2 MCV 92.4 MCH 31.9 MCHC 34.5 RDW 13.9 Plt Count 193 MPV 9.0 Absolute Neuts (auto) 3.4 Neutrophils % 65.5 Lymphocytes % 19.8 D Monocytes % 10.3 H Eosinophils % 3.5 Basophils % 0.9 Nucleated RBC % 0 ESR Sodium Potassium Chloride Carbon Dioxide Anion Gap BUN Creatinine Creat Clearance w eGFR Random Glucose Calcium Phosphorus Magnesium Total Bilirubin AST ALT Alkaline Phosphatase Ammonia 15.68 Total Protein Albumin Lyme Screen IgG & IgM Active Medications Acetaminophen (Tylenol -) 325 mg PO BID [facility]ERENA Last Admin: 12/06/17 13:41 Dose: 325 mg Heparin Sodium (Porcine) (Heparin -) 5,000 unit SQ TID [facility] Last Admin: 12/06/17 13:41 Dose: 5,000 unit Ceftriaxone Sodium 1 gm/ (Dextrose) 50 mls @ 200 mls/hr IVPB DAILY VERENA; Protocol Last Admin: 12/06/17 11:26 Dose: 200 mls/hr Lactobacillus Acidophilus (Bacid -) 1 tab PO DAILY [facility] Last Admin: 12/06/17 11: Dose: 1 tab Latanoprost (Xalatan 0.005% Eye Drops -) 1 drop OU HS VERENA IMAGING: - CXR (12/04): No acute disease. - CT Head (12/04): No evidence of acute intracranial pathology. - ECHO (12/04): LV Size, thickness and function are normal. RV is normal in size and function. Trace MR, Trace TR ASSESSMENT/PLAN: 82 y/o F with PMHx mechanical falls, glaucoma, Alzheimer's presents to ED with presumed altered mental status and fever. Though she met SIRS criteria on arrival, no source of infection was found. 1. Acute Metabolic Encephalopathy - Patient presents with Increased confusion from baseline from [facility]; Today patient has improved and is less confused - CXR (12/04): No acute disease. - CT Head (12/04): No evidence of acute intracranial pathology. - VBG: pH 7.40, pCO2 44.4, pO2 41.0, HCO3 27.0 H - Troponin < 0.02 - CRP elevated at 5.5 - ESR: 13 - B12 and TSH WNL - RPR Nonreactive - Extensive workup as noted by labs above has been negative so far - Neurology (Dr. Orona) consulted, Appreciate rec's, Check ESR, CRP, R/O occult infection, Mobilize Out of Bed to chair, Monitor temps, Continue Exelon Patch 9.5 mg/day; When stable, as out patient, could consider addition of Memantine 5 mg PO BID with food. 2. SIRS - Temperature 101.6 F, HR 106 - Lactic acid 1.0, WBC 6.4 - Unable to find a source up to this point - Can consider LP pending neuro rec's - Some labwork still pending including tick borne illnesses (Lyme, Anaplasma, Babesia serology) - Duplex Both legs pending - CXR (12/04): No acute disease. - ECHO (12/04): LV Size, thickness and function are normal. RV is normal in size and function. Trace MR, Trace TR - UA: Negative - Blood culture negative - Urine Culture: Enterococcus Faecalis - Started on Rochephin 1gm empircally pending sensitivities - Started on Bacid - Respiratory virus PCR pending 3. Alzheimers disease - Will confirm home meds and then restart 4. PPx - DVT: Heparin 5,000 unit SQ TID 5. FEN - PO Fluids - Lytes wnl, replete as needed - Regular diet Dispo: Observation Visit type - Emergency Visit Emergency Visit: Yes ED Registration Date: 12/05/17 Care time: The patient presented to the Emergency Department on the above date and was hospitalized for further evaluation of their emergent condition. - New Patient This patient is new to me today: No - Critical Care Critical Care patient: No
[2017-12-06] MEDS ORDERED: LATANOPROST 0.005% OPHTH SOLN 2.5ML BOTTLE OU SCH (22:00)
[2017-12-07] MEDS: HEPARIN NA (PORCINE) 5,000 UNITS/ML 1ML VIAL SQ SCH ×2 (06:58→13:57)
[2017-12-07 07:50] LABS: BASO % 0.9 % (0-2.0); EOS % 3.2 % (0-4.5); HEMATOCRIT 35.5 % (32.4-45.2); HEMOGLOBIN 12.5 GM/dL (10.7-15.3); LYMPH % 25.3 % (8-40); MCH 32.4 pg (25.7-33.7); MCHC 35.2 g/dl (32.0-36.0); MEAN CELL VOLUME 91.9 fl (80-96); MEAN PLT VOLUME 8.8 fl (7.5-11.1); MONO % 9.3 % (3.8-10.2); NEUT % 61.3 % (42.8-82.8); PLATELET COUNT 180 K/MM3 (134-434); RBC 3.86 M/mm3 (3.60-5.2); RDW 13.8 % (11.6-15.6); WHITE BLOOD COUNT 4.4 K/mm3 (4.0-10.0)
[2017-12-07 08:11] LABS: CHLORIDE 106 mmol/L (98-107); POTASSIUM 3.9 mmol/L (3.5-5.1); SODIUM 144 mmol/L (136-145)
[2017-12-07 08:27] LABS: ANION GAP 10 (8-16); BLOOD UREA NITROGEN 15 mg/dL (7-18); CALCIUM 8.6 mg/dL (8.5-10.1); CO2 28 mmol/L (21-32); CREATININE 0.7 mg/dL (0.55-1.02); GLUCOSE,RANDOM 99 mg/dL (74-106); MAGNESIUM 2.3 mg/dL (1.8-2.4); PHOSPHOROUS 3.6 mg/dL (2.5-4.9)
[2017-12-07] MEDS ORDERED: cefTRIAXone SODIUM 1 GM VIAL ONE (09:57)
[2017-12-07] MEDS ORDERED: DEXTROSE 5%-WATER - 50 ML IVPB ONE (09:57)
[2017-12-07] MEDS: ACETAMINOPHEN 325 MG TABLET (FP) PO SCH (10:02)
[2017-12-07] MEDS: LACTOBACILLUS ACIDOPHILUS 1 TABLET PO SCH (10:02)
[2017-12-07] MEDS: CEFTRIAXONE 1 GM in DEXTROSE 5%-WATER - 50 ML IVPB SCH (10:03)
--- NOTE | 2017-12-07 14:56 | DS ---
Physical Exam: SUBJECTIVE: Patient seen and examined OBJECTIVE: Vital Signs Temperature 98.0 F 12/07/17 10:00 Pulse Rate 74 12/07/17 10:00 Respiratory Rate 18 12/07/17 10:00 Blood Pressure 118/55 12/07/17 10:00 O2 Sat by Pulse Oximetry (%) 94 L 12/07/17 03:00 PHYSICAL EXAM GENERAL: The patient is awake, alert, and fully oriented, in no acute distress. HEAD: Normal with no signs of trauma. EYES: PERRL, extraocular movements intact, sclera anicteric, conjunctiva clear. ENT: Ears normal, oropharynx clear without exudates, moist mucous membranes. NECK: Trachea midline, full range of motion, supple. LUNGS: Breath sounds equal, clear to auscultation bilaterally, no wheezes, no crackles, no accessory muscle use. HEART: Regular rate and rhythm, S1, S2 without murmur, rub or gallop. ABDOMEN: Soft, nontender, nondistended, normoactive bowel sounds, no guarding, no rebound, no hepatosplenomegaly, no masses. EXTREMITIES: 2+ pulses, warm, well-perfused, no edema. NEUROLOGICAL: Cranial nerves II through XII grossly intact. Normal speech, gait not observed. PSYCH: Normal mood, normal affect. SKIN: Warm, dry, normal turgor, no rashes or lesions noted. LABS Laboratory Results - last 24 hr 12/05/17 12/07/17 12/07/17 05:00 06:00 06:00 WBC 4.4 RBC 3.86 Hgb 12.5 Hct 35.5 MCV 91.9 MCH 32.4 MCHC 35.2 RDW 13.8 Plt Count 180 MPV 8.8 Absolute Neuts (auto) 2.7 Neutrophils % 61.3 Lymphocytes % 25.3 D Monocytes % 9.3 Eosinophils % 3.2 Basophils % 0.9 Nucleated RBC % 0 Sodium 144 Potassium 3.9 Chloride 106 Carbon Dioxide 28 Anion Gap 10 BUN 15 Creatinine 0.7 Creat Clearance w eGFR > 60 Random Glucose 99 Calcium 8.6 Phosphorus 3.6 Magnesium 2.3 Lyme Screen IgG & IgM <0.91 HOSPITAL COURSE: Date of Admission:12/05/17 Date of Discharge: 12/07/17 82yo F with PMH frequent falls and Alzheimer presented to the Er with acute metabolic encephalopathy 1. Acute Metabolic encephalopathy- currently appears to be at baseline from reports from [facility] CT negative for acute pathology. workup done here so far is negative. TSH/Vit B12/folate/electrolytes/BUN. can check ammonia level as well for completeness but low concern. neuro consulted 2. SIRS- Tm 101.6 with tachycardia. no suspected source. could consider menningitis in setting of AMS however will need to obtain more detailed of how patient differs from baseline. will d/w neuro if LP should be obtained in light of no source if pt is considered more confused. Tick borne titers are pending. doppler pending. echo for endocarditis? pending. UA and CXR negative. will hold abx at this time 3. Alzheimer- will confirm home meds and re-start 4. DVT ppx- hep sq Discharge Summary Reason For Visit: ALTERED MENTAL STATUS Condition: Fair - Instructions - Home Medications Comprehensive Discharge Medication List: Ambulatory Orders Travoprost [Travatan Z] 2.5 ml OP ASDIR 01/03/17 Acetaminophen [Mapap] 500 mg PO BID 12/04/17 Cholecalciferol (Vitamin D3) [Vitamin D] 2,000 unit PO DAILY 12/04/17 Famotidine 20 mg PO BID 12/04/17 Rivastigmine [Exelon Patch 9.5 mg/24 Hours] 1 each TD DAILY 12/04/17 Sennosides [Senna] 8.6 mg PO HS 12/04/17 Docusate Sodium [Colace -] 300 mg PO HS 12/06/17
[2017-12-07 15:45] VITALS: BP 140/82; PULSE 83; TEMP 97.6
[2017-12-07] MEDS ORDERED: AMOXICILLIN 500 MG CAPSULE (FP) PO SCH (22:00)
[2017-12-10 00:07] LABS: BABESIA MICROTI ANTIBODY IGG <1:10 (Neg:<1:10); BABESIA MICROTI ANTIBODY IGM <1:10 (Neg:<1:10)
== END 2017-12-07 16:00 ==
LOC: JER 18:38 → JERBED 22:57 → INTOOBSV 22:57 → UNDOADMOB 22:57 → JERBED 12-05 03:14 → J5S 12-05 13:05
PROVIDERS: ADMIT Internal Medicine; ATTEND Internal Medicine
PROC: 3E033NZ Introduction of Analgesics, Hypnotics, Sedatives into Peripheral Vein, Percutaneous Approach (ICD-10-PCS; principal; 2017-12-05)
PROC: 3E03329 Introduction of Other Anti-infective into Peripheral Vein, Percutaneous Approach (ICD-10-PCS; 2017-12-05)
PROC: 3E033GC Introduction of Other Therapeutic Substance into Peripheral Vein, Percutaneous Approach (ICD-10-PCS; 2017-12-05)
PROC: 3E0337Z Introduction of Electrolytic and Water Balance Substance into Peripheral Vein, Percutaneous Approach (ICD-10-PCS; 2017-12-05)
PROC: 3E013GC Introduction of Other Therapeutic Substance into Subcutaneous Tissue, Percutaneous Approach (ICD-10-PCS; 2017-12-05)
DX: R65.10 Systemic inflammatory response syndrome (SIRS) of non-infectious origin without acute organ dysfunction (principal); R41.82 Altered mental status, unspecified; G93.89 Other specified disorders of brain; G93.41 Metabolic encephalopathy; R00.0 Tachycardia, unspecified; G30.9 Alzheimer's disease, unspecified; F02.80 Dementia in other diseases classified elsewhere, unspecified severity, without behavioral disturbance, psychotic disturbance, mood disturbance, and anxiety; H40.9 Unspecified glaucoma
CPT/HCPCS: 36415; 70450-TC; 71045-TC-FY; 80048; 80053; 81003; 82140; 82607; 82803; 82930; 83605; 83735; 84100; 84443; 84484; 85025; 85610; 85651; 85730; 86140; 86593; 86618; 86753; 87040; 87086; 87186; 87633; 87802; 87899; 93306-TC; 93970-TC; 96361; 96372; 96374; 96375; 97116-GP; 97161-GP; 99285-25; G0378; J0131; J1644; J7030

== ENCOUNTER 2018-03-07 23:20 | Observation (INO) | payer OTHER, BC ==
--- NOTE | 2018-03-07 23:41 | PDOC ---
History of Present Illness <Melinda Edwards - Last Filed: 03/08/18 01:45> - General History Source: Patient, Prison Records, Old Records Exam Limitations: Dementia - History of Present Illness Initial Comments: 82 y/o female presenting to [facility] ER via ambulance from [facility] with concern for altered mental status. Nursing facility paperwork noted reason for transfer as: AMS, evidenced by increased confusion, stripping naked, weakness, leaning on her right side. Note also indicates pt is receiving macrobid for UTI. Pt herself reports no complaints. States she only feels uncomfortable because she is in the hospital. Previously admitted to this facility on 05 December 2017 for an altered mental status with fever. Suspected to be secondary to UTI. Urine culture grew e. Faecalis (R to Levofloxacin and Tetracycline). Baseline is recorded to be to person and place. PCP: Adi Shields Hx: - Alzheimers Dementia - Glaucoma - Mechanical falls <Solomon Giordano - Last Filed: 03/08/18 04:00> - General Stated Complaint: ALT MENTAL STATUS Time Seen by Provider: 03/07/18 23:31 Past History <Melinda Edwards - Last Filed: 03/08/18 01:45> - Past Medical History COPD: No Dementia: Yes (EARLY ALZHEIMERS) - Suicide/Smoking/Psychosocial Hx Smoking History: Former smoker Have you smoked in the past 12 months: No Hx Alcohol Use: Yes (occassional) Drug/Substance Use Hx: No Substance Use Type: None <Solomon Giordano - Last Filed: 03/08/18 04:00> - Past Medical History Allergies/Adverse Reactions: Allergies Allergy/AdvReac Type Severity Reaction Status Date / Time Sulfa (Sulfonamide Allergy Verified 03/08/18 00:17 Antibiotics) Home Medications: Ambulatory Orders Travoprost [Travatan Z] 2.5 ml OP ASDIR 01/03/17 Acetaminophen [Mapap] 500 mg PO BID 12/04/17 Cholecalciferol (Vitamin D3) [Vitamin D3] 2,000 unit PO DAILY 12/04/17 Famotidine 20 mg PO BID 12/04/17 Rivastigmine [Exelon Patch 9.5 mg/24 Hours -] 1 each TD DAILY 12/04/17 Sennosides [Senna] 8.6 mg PO HS 08/08/18 Docusate Sodium [Colace -] 300 mg PO HS 12/06/17 Amoxicillin - [Amoxicillin 500mg Capsule -] 500 mg PO TID #21 capsule 12/07/17 Lactobacillus Acidophilus [Bacid -] 1 tab PO DAILY #30 tab 12/07/17 Review of Systems - Review of Systems Able to Perform ROS?: Yes Comments:: In addition to that documented in the HPI above, the additional ROS was obtained : Constitutional: Denies fevers or chills Eyes: Denies vision changes ENMT: Denies sore throat CV: Denies chest pain Resp: Denies SOB GI: Denies vomiting or diarrhea <Solomon Giordano - Last Filed: 03/08/18 04:00> *Physical Exam - Vital Signs Last Vital Signs Temp Pulse Resp BP Pulse Ox 98.0 F 68 18 152/71 95 03/08/18 00:08 03/08/18 00:08 03/08/18 00:08 03/08/18 00:08 03/08/18 00:08 <Melinda Edwards - Last Filed: 03/08/18 01:45> - Physical Exam Comments: Constitutional: Well-developed, well-nourished elderly female in no acute distress or obvious discomfort. Found semi-fowlers in hospital bed. Alert and oriented to person and place. Speech was non-labored, non-pressured. HEENT: Normocephalic. No obvious external signs of trauma. Hearing grossly normal. No nasal discharge. Neck is supple, trachea is midline. Cardiovascular: Regular rate and regular rhythm. No murmur, rubs, clicks, or gallops. Peripheral pulses: Radial pulses full. Respiratory: Breathing unlabored. Equal chest rise and fall. Clear to auscultation bilaterally. No stridor, no wheezing, no rhonchi. Gastrointestinal: abdomen is soft, non-tender, non-distended. Neuro: Alert and oriented x2. Moving all four extremities spontaneously. No focal deficits, Cranial nerves intact, intact sensation to all four extremities. Proximal and distal strength 5/5, grinder tender strength 5/5 - equal and symmetric. Plantar flexion and dorsiflexion 5/5. Skin/MSK: Warm, dry, and intact. No bruising, rashes, or other lesions. 1+ pretibial edema bilaterally. Psych: Affect: appropriate. Mood: normal. <Solomon Giordano - Last Filed: 03/08/18 04:00> ED Treatment Course - LABORATORY CBC & Chemistry Diagram: 03/08/18 00:20 03/08/18 00:20 - ADDITIONAL ORDERS Additional order review: Laboratory Results 03/08/18 03/07/18 00:20 23:55 Sodium 142 Potassium 4.0 Chloride 105 Carbon Dioxide 30 H Anion Gap 7 L BUN 15 Creatinine 0.7 Creat Clearance w eGFR > 60 Random Glucose 102 Calcium 9.1 Total Bilirubin 0.4 AST 26 ALT 24 Alkaline Phosphatase 78 Total Protein 6.8 Albumin 4.0 Urine Color Ltyellow Urine Appearance Clear Urine pH 6.0 Ur Specific [place] 1.006 L Urine Protein Negative Urine Glucose (UA) Negative Urine Ketones Negative Urine Blood Negative Urine Nitrite Negative Urine Bilirubin Negative Urine Urobilinogen Negative Ur Leukocyte Esterase Negative 03/08/18 00:20 RBC 4.05 MCV 93.4 MCHC 34.0 RDW 13.4 MPV 9.0 Neutrophils % 75.6 D Lymphocytes % 13.5 D Monocytes % 7.9 Eosinophils % 2.0 Basophils % 1.0 - RADIOLOGY Radiology Studies Ordered: Category Date Time Status HEAD CT WITHOUT CONTRAST [CT] Stat CT Scan 03/08/18 00:14 Taken <Melinda Edwards - Last Filed: 03/08/18 01:45> - LABORATORY CBC & Chemistry Diagram: 03/08/18 00:20 03/08/18 00:20 <Solomon Giordano - Last Filed: 03/08/18 04:00> Medical Decision Making - Medical Decision Making 03/08/18 01:45 Patient Name: ARLENE GAGNON THIS IS A PRELIMINARY REPORT FROM [facility] DATE OF SERVICE: 2018-03-08 00:34:19 IMAGES: 189 EXAM: CT CT head without contrast HEAD CT WITHOUT CONTRAST HISTORY: Altered mental status TECHNIQUE: CT Head with serial axial images extending from the vertex to the base of skull was performed without vascular contrast. FINDINGS: Brain parenchyma is normal in attenuation with no mass or hematoma. There is no midline shift. Vega and white matter differentiation is normal. Ventricles are mildly prominent. Sulci and extra-axial CSF spaces are mildly prominent. Intracranial vascular structures are normal in attenuation. There is no calvarial fracture. Paranasal sinuses are normally aerated. IMPRESSION: No intracranial mass or bleed Chronic appearing involutional changes of aging One or more of the following dose reduction techniques were used: automated exposure control, adjustment of the mA and/or kV according to patient size, use of iterative reconstructive technique. THIS DOCUMENT HAS BEEN ELECTRONICALLY SIGNED Pt will be admitted for 24 hr observation as she lives in an assisted living facility and she doesn't have oversight over her. <Melinda Edwards - Last Filed: 03/08/18 01:45> - Medical Decision Making *Reviewed vital signs, nursing notes, and prior visit documentation (if available). CBC, CMP, UA, Urine culture, EKG, and non-contrast head CT. 82 y/o female with Alzheimers dementia from nursing facility with a reported AMS. Currently receiving macrobid for UTI. Pt w/o complaints. Afebrile. Vitals remarkable for mild hypertension without tachycardia. Benign physical exam. Pt is alert and oriented to previously recorded baseline. Unclear if pts mental status has improved; pt is not displaying confusion or weakness. Low suspicion for ACS, arrhythmia, CVA, TIA, or septic infection. Suspect behavior may be progression of Alzheimers disease. Will obtain CBC, CMP, UA, urine culture, EKG, and non-contrast head CT. Head CT unremarkable for acute intracranial process. CBC unremarkable for anemia or leukocytosis. CMP unremarkable for electrolyte derangement. LFTs not elevated. BUN and Cr at baseline. eGFR >60. UA unremarkable for pyuria, leukocyte esterase, or nitrites. Low suspicion for UTI. Culture pending. BNP added with concern for CHF given bilateral lower extremity edema. BNP not elevated. Low suspicion for CHF. Will admit for observation given disconnect between mental status described by [facility] and what has been witnessed in the department. 03:28 Telephone consult with admitting attending for Dr. Joshi, Dr. Laird. Agrees to admit pt to med/surg on observation status. No additional orders given. <Solomon Giordano - Last Filed: 03/08/18 04:00> *DC/Admit/Observation/Transfer <Melinda Edwards - Last Filed: 03/08/18 01:45> - Discharge Dispostion Decision to Admit order: Yes <Solomon Giordano - Last Filed: 03/08/18 04:00> Diagnosis at time of Disposition: Altered mental status, unspecified Qualifiers: Altered mental status type: disorientation Qualified Code(s): R41.0 - Disorientation, unspecified - Discharge Dispostion Condition at time of disposition: Stable - Referrals Referrals: Anaya Joshi [Primary Care Provider] - - Patient Instructions - Post Discharge Activity
--- NOTE | 2018-03-08 00:07 | PDOC ---
Attending Attestation - HPI HPI: 03/08/18 00:57 The patient is a 82 year old female with past medical history significant for Alzheimer's, dementia, presents to the emergency department from [facility] with AMS. Per [place] records, Patient was sent for AMS, evidence by increased confusion , stripping naked, weakness, leaning on her right side. At the ED, the patient states she had no complain. Denies recent sick contact. The patient reports her lower extremities been more swollen than usual, with increase redness. Allergies: Sulfa. Social history: None reported on chart. Surgical history: None reported on chart. PCP: Dr. Blane Joshi. - Physicial Exam PE: 03/08/18 02:02 GENERAL: Awake, alert, oriented x1 , in no acute distress HEAD: No signs of trauma EYES: PERRLA, EOMI, sclera anicteric, conjunctiva clear ENT: +dry mouth, breathing through her mouth. Auricles normal inspection, hearing grossly normal, nares patent, oropharynx clear without exudates. NECK: Normal ROM, supple, no JVD, or masses LUNGS: Breath sounds equal, clear to auscultation bilaterally. No wheezes, and no crackles HEART: Regular rate and rhythm, normal S1 and S2, no murmurs, rubs or gallops ABDOMEN: Soft, nontender. No guarding, no rebound. No masses EXTREMITIES: +red, warm, swelling to the lower extremity, redness to the fingers bilaterally, pitting edema to the lower extremity. NEUROLOGICAL: Cranial nerves II through XII grossly intact. Normal speech. SKIN: Warm, Dry, normal turgor, no rashes or lesions noted. - Medical Decision Making 03/08/18 00:57 Documentation prepared by Marika Licea, acting as medical management specialist for Melinda Edwards MD. <Marika Licea - Last Filed: 03/08/18 02:02> - Resident Resident Name: Solomon Giordano - ED Attending Attestation I have performed the following: I have examined & evaluated the patient, The case was reviewed & discussed with the resident, I agree w/resident's findings & plan - Medical Decision Making 03/08/18 01:42 Pt's labs are normal; she has normal UA. SHe has significant degeneration of her brain, but no acute findings. 03/08/18 03:39 Pt lives in an assisted living facility where she cares for herself. SHe will be admitted for 24 hrs of observation, as it is unclear whether this is her baseline, or whether she is capable of caring for herself. 03/08/18 03:43 She will be admitted to Dr. Laird CXR: cardiomegaly (however it is a portable film) 03/08/18 03:45 Patient Name: ARLENE GAGNON THIS IS A PRELIMINARY REPORT FROM [facility] DATE OF SERVICE: 2018-03-08 00:34:19 IMAGES: 189 EXAM: CT CT head without contrast HEAD CT WITHOUT CONTRAST HISTORY: Altered mental status TECHNIQUE: CT Head with serial axial images extending from the vertex to the base of skull was performed without vascular contrast. FINDINGS: Brain parenchyma is normal in attenuation with no mass or hematoma. There is no midline shift. Vega and white matter differentiation is normal. Ventricles are mildly prominent. Sulci and extra-axial CSF spaces are mildly prominent. Intracranial vascular structures are normal in attenuation. There is no calvarial fracture. Paranasal sinuses are normally aerated. IMPRESSION: No intracranial mass or bleed Chronic appearing involutional changes of aging THIS DOCUMENT HAS BEEN ELECTRONICALLY SIGNED 03/08/18 04:30 Pt ambulated to the bathroom with the nurse's aides. She is looking well. <Melinda Edwards - Last Filed: 03/08/18 04:31> Heart Score/ECG Review - History History: Slightly suspicious - Electrocardiogram EKG: Normal - Age Age: >/= 65 - ECG Intrepretation Rhythm: Regular Rhythm - [place]: Normal - P and TX Prominent R with upright T in V1 (true posterior [place]): No Delta Wave(s) Present: No WPW: No - QRS Poor R Wave Progression: Yes Q Wave Present: No <Melinda Edwards - Last Filed: 03/08/18 04:31>
[2018-03-08 00:11] LABS: URINE APPEARANCE CLEAR; URINE BILIRUBIN NEGATIVE (<2.0 mg/dL); URINE COLOR LTYELLOW; URINE GLUCOSE (UA) NEGATIVE (NEGATIVE); URINE KETONE NEGATIVE (NEGATIVE); URINE LEUK ESTERASE NEGATIVE (NEGATIVE); URINE NITRITE NEGATIVE (NEGATIVE); URINE PROTEIN NEGATIVE (NEGATIVE); URINE UROBILINOGEN NEGATIVE mg/dL (0.2-1.0)
[2018-03-08 00:32] LABS: HEMATOCRIT 37.8 % (32.4-45.2); HEMOGLOBIN 12.9 GM/dL (10.7-15.3); LYMPH % 13.5 % (8-40); MCH 31.7 pg (25.7-33.7); MEAN CELL VOLUME 93.4 fl (80-96); MONO % 7.9 % (3.8-10.2); NEUT % 75.6 % (42.8-82.8); PLATELET COUNT 194 K/MM3 (134-434); RBC 4.05 M/mm3 (3.60-5.2); RDW 13.4 % (11.6-15.6)
[2018-03-08 01:19] LABS: ALK PHOS 78 U/L (45-117); ANION GAP 7 MMOL/L (8-16); BILIRUBIN,TOTAL 0.4 mg/dL (0.2-1); BLOOD UREA NITROGEN 15 mg/dL (7-18); CALCIUM 9.1 mg/dL (8.5-10.1); CHLORIDE 105 mmol/L (98-107); CO2 30 mmol/L (22-28); CREATININE 0.7 mg/dL (0.55-1.3); GLUCOSE,RANDOM 102 mg/dL (74-106); SGOT/AST 26 U/L (15-37); SGPT/ALT 24 U/L (13-61); SODIUM 142 mmol/L (136-145); TOT PROT 6.8 g/dl (6.4-8.2)
[2018-03-08 06:50] VITALS: BMI 21.7
--- NOTE | 2018-03-08 09:25 | HP ---
Admitting History and Physical - Admission Chief Complaint: altered - cannot provide hx History of Present Illness: 82 y/o female presenting to [facility] ER via ambulance from [facility] with concern for altered mental status. Nursing facility paperwork noted reason for transfer as: AMS, evidenced by increased confusion, stripping naked, weakness, leaning on her right side. Note also indicates pt is receiving macrobid for UTI. Pt herself reports no complaints. States she only feels uncomfortable because she is in the hospital. Previously admitted to this facility on 05 December 2017 for an altered mental status with fever. Suspected to be secondary to UTI. Urine culture grew e. Faecalis (R to Levofloxacin and Tetracycline). Baseline is recorded to be to person and place. 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 - Smoking History Smoking history: Never smoked Have you smoked in the past 12 months: No - Alcohol/Substance Use Hx Alcohol Use: Yes (occassional) - Social History Usual Living Arrangement: Yes: Other (independent living facility) ADL: Support Services History of Recent Travel: No Home Medications - Allergies Allergies/Adverse Reactions: Allergies Allergy/AdvReac Type Severity Reaction Status Date / Time Sulfa (Sulfonamide Allergy Verified 03/08/18 00:17 Antibiotics) - Home Medications Home Medications: Ambulatory Orders Travoprost [Travatan Z] 2.5 ml OP ASDIR 01/03/17 Acetaminophen [Mapap] 500 mg PO BID 12/04/17 Cholecalciferol (Vitamin D3) [Vitamin D3] 2,000 unit PO DAILY 12/04/17 Famotidine 20 mg PO BID 12/04/17 Rivastigmine [Exelon Patch 9.5 mg/24 Hours -] 1 each TD DAILY 12/04/17 Sennosides [Senna] 8.6 mg PO HS 12/04/17 Docusate Sodium [Colace -] 300 mg PO HS 12/06/17 Amoxicillin - [Amoxicillin 500mg Capsule -] 500 mg PO TID #21 capsule 12/07/17 Lactobacillus Acidophilus [Bacid -] 1 tab PO DAILY #30 tab 12/07/17 Review of Systems Unable to obtain ROS, reason: dementia - Review of Systems Constitutional: denies: Chills, Fever Eyes: reports: No Symptoms HENT: reports: No Symptoms Neck: reports: No Symptoms Cardiovascular: denies: Chest Pain, Palpitations, Shortness of Breath Respiratory: denies: Cough, SOB Gastrointestinal: denies: Abdominal Pain Genitourinary: reports: No Symptoms Breasts: reports: No Symptoms Reported Musculoskeletal: reports: No Symptoms Integumentary: reports: No Symptoms Neurological: reports: Pre-Existing Deficit Endocrine: reports: No Symptoms Hematology/Lymphatic: reports: No Symptoms Psychiatric: reports: Altered Sleep Pattern Physical Examination Vital Signs: Vital Signs Temperature 97.7 F 03/08/18 06:42 Pulse Rate 87 03/08/18 06:42 Respiratory Rate 18 03/08/18 06:42 Blood Pressure 157/92 03/08/18 06:42 O2 Sat by Pulse Oximetry (%) 96 03/08/18 04:30 Constitutional: Yes: Well Nourished, No Distress, Calm, Other (confused) Eyes: Yes: Conjunctiva Clear, EOM Intact HENT: Yes: Atraumatic, Normocephalic Neck: Yes: Supple, Trachea Midline Cardiovascular: Yes: Regular Rate and Rhythm Respiratory: Yes: Regular, CTA Bilaterally Gastrointestinal: Yes: Normal Bowel Sounds, Soft ...Rectal Exam: Yes: Deferred Renal/: Yes: WNL Breast(s): Yes: WNL Musculoskeletal: Yes: WNL, Other (unable to asses ambulation no weakness appreciated) Extremities: Yes: WNL Edema: No Peripheral Pulses WNL: Yes Integumentary: Yes: WNL Neurological: Yes: Alert, Confusion (only oriented to self), Pre-Existing Deficit Labs: CBC, BMP 03/08/18 00:20 03/08/18 00:20 Problem List - Problems (1) Dementia Code(s): F03.90 - UNSPECIFIED DEMENTIA WITHOUT BEHAVIORAL DISTURBANCE (2) Altered mental status Code(s): R41.82 - ALTERED MENTAL STATUS, UNSPECIFIED Qualifiers: Altered mental status type: disorientation Qualified Code(s): R41.0 - Disorientation, unspecified (3) Frequent falls Code(s): R29.6 - REPEATED FALLS (4) Generalized weakness Code(s): R53.1 - WEAKNESS
[2018-03-08] MEDS: FUROSEMIDE 40 MG/4 ML INJECTABLE VIAL IVPUSH SCH (09:48)
[2018-03-08] MEDS ORDERED: FUROSEMIDE 40 MG/4 ML INJECTABLE VIAL IVPUSH SCH (10:00)
--- NOTE | 2018-03-08 11:22 | CON.NEURO ---
Consult Consult Specialty:: neurology Reason for Consultation:: ams - History of Present Illness History of Present Illness: 82 y/o female presenting to [facility] ER via ambulance from [facility] with concern for altered mental status. Nursing facility paperwork noted reason for transfer as: AMS, evidenced by increased confusion, stripping naked, weakness, leaning on her right side. Note also indicates pt is receiving macrobid for UTI. Pt herself reports no complaints. States she only feels uncomfortable because she is in the hospital. Previously admitted to this facility on 05 December 2017 for an altered mental status with fever. Suspected to be secondary to UTI. Urine culture grew e. Faecalis (R to Levofloxacin and Tetracycline). Baseline is recorded to be to person and place. I saw and examinde her at the bedside, comfortable, socialize , denies headache , numbness, weakness , dizziness etc; demented as baseline , mildly confused. 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 - Alcohol/Substance Use Hx Alcohol Use: Yes (occassional) - Smoking History Smoking history: Never smoked Have you smoked in the past 12 months: No - Social History ADL: Support Services History of Recent Travel: No Home Medications - Allergies Allergies/Adverse Reactions: Allergies Allergy/AdvReac Type Severity Reaction Status Date / Time Sulfa (Sulfonamide Allergy Verified 03/08/18 00:17 Antibiotics) - Home Medications Home Medications: Ambulatory Orders Travoprost [Travatan Z] 2.5 ml OP ASDIR 01/03/17 Acetaminophen [Mapap] 500 mg PO BID 12/04/17 Cholecalciferol (Vitamin D3) [Vitamin D3] 2,000 unit PO DAILY 12/04/17 Famotidine 20 mg PO BID 12/04/17 Rivastigmine [Exelon Patch 9.5 mg/24 Hours -] 1 each TD DAILY 12/04/17 Sennosides [Senna] 8.6 mg PO HS 12/04/17 Docusate Sodium [Colace -] 300 mg PO HS 12/06/17 Amoxicillin - [Amoxicillin 500mg Capsule -] 500 mg PO TID #21 capsule 12/07/17 Lactobacillus Acidophilus [Bacid -] 1 tab PO DAILY #30 tab 12/07/17 Review of Systems - Review of Systems Constitutional: reports: No Symptoms Eyes: reports: No Symptoms HENT: reports: No Symptoms Neck: reports: No Symptoms Cardiovascular: reports: No Symptoms Respiratory: reports: No Symptoms Gastrointestinal: reports: No Symptoms Physical Exam-Neuro Vital Signs: Vital Signs Temperature 97.7 F 03/08/18 06:42 Pulse Rate 87 03/08/18 06:42 Respiratory Rate 18 03/08/18 06:42 Blood Pressure 157/92 03/08/18 06:42 O2 Sat by Pulse Oximetry (%) 96 03/08/18 04:30 Labs: CBC, BMP 03/08/18 00:20 03/08/18 00:20 Imaging - Results Cat Scan: Report Reviewed, Image Reviewed (No acute events) Problem List - Problems (1) Altered mental status Code(s): R41.82 - ALTERED MENTAL STATUS, UNSPECIFIED Qualifiers: Altered mental status type: disorientation Qualified Code(s): R41.0 - Disorientation, unspecified (2) Dementia Code(s): F03.90 - UNSPECIFIED DEMENTIA WITHOUT BEHAVIORAL DISTURBANCE (3) Dehydration Code(s): E86.0 - DEHYDRATION (4) UTI (urinary tract infection) Code(s): N39.0 - URINARY TRACT INFECTION, SITE NOT SPECIFIED Assessment/Plan 82 y/o female presenting to [facility] ER via ambulance from [facility] with concern for altered mental status. Nursing facility paperwork noted reason for transfer as: AMS, evidenced by increased confusion, stripping naked, weakness, leaning on her right side. She has had recent UTI. On my exam , demented , mildly confused ,no aggressive behavior. No focal defecit . CTH - for acute events. AMS due to possible metabolic / infectious encephalopathy Rec: c/w rivastigmine B12, TSH , RPR Neurocheck q4 hours Fall precautions Health maintenance per primary team. WOLFX Adalberto Medina MD [phone]
[2018-03-08] MEDS ORDERED: PT OWN MED DRAWER 7, Y5N ONE (21:50)
[2018-03-08] MEDS: ACETAMINOPHEN 500 MG TABLET (FP) PO SCH (22:02)
[2018-03-08] MEDS: SENNOSIDES 8.6MG TABLET (FP) PO SCH (22:03)
[2018-03-08] MEDS: DOCUSATE SODIUM 100 MG CAPSULE (FP) PO SCH (22:03)
[2018-03-08] MEDS: LATANOPROST 0.005% OPHTH SOLN 2.5ML BOTTLE OU SCH (23:10)
[2018-03-09 07:08] LABS: BASO % 0.6 % (0-2.0); EOS % 1.8 % (0-4.5); HEMATOCRIT 36.1 % (32.4-45.2); HEMOGLOBIN 12.2 GM/dL (10.7-15.3); LYMPH % 16.5 % (8-40); MCH 31.6 pg (25.7-33.7); MCHC 33.9 g/dl (32.0-36.0); MEAN CELL VOLUME 93.1 fl (80-96); MEAN PLT VOLUME 8.5 fl (7.5-11.1); MONO % 8.6 % (3.8-10.2); NEUT % 72.5 % (42.8-82.8); PLATELET COUNT 184 K/MM3 (134-434); RBC 3.87 M/mm3 (3.60-5.2); RDW 13.4 % (11.6-15.6); WHITE BLOOD COUNT 5.9 K/mm3 (4.0-10.0)
[2018-03-09 07:53] LABS: ANION GAP 7 MMOL/L (8-16); BLOOD UREA NITROGEN 15 mg/dL (7-18); CALCIUM 8.4 mg/dL (8.5-10.1); CHLORIDE 104 mmol/L (98-107); CO2 30 mmol/L (21-32); CREATININE 0.7 mg/dL (0.55-1.3); GLUCOSE,RANDOM 99 mg/dL (74-106); POTASSIUM 3.6 mmol/L (3.5-5.1); SODIUM 141 mmol/L (136-145)
--- NOTE | 2018-03-09 09:18 | PN ---
Progress Note, Physician History of Present Illness: 82 y/o female presenting to [facility] ER via ambulance from [facility] with concern for altered mental status. Nursing facility paperwork noted reason for transfer as: AMS, evidenced by increased confusion, stripping naked, weakness, leaning on her right side. She has had recent UTI. On my exam , demented , mildly confused ,no aggressive behavior. No focal defecit . CTH - for acute events. AMS due to possible metabolic / infectious encephalopathy FU : UA (-), HD cT (-) - Current Medication List Current Medications: Active Medications Acetaminophen (Tylenol -) 500 mg PO BID [facility] Last Admin: 03/08/18 22:02 Dose: 500 mg Cholecalciferol (Vitamin D3 -) 2,000 unit PO DAILY [facility] Docusate Sodium (Colace -) 300 mg PO HS [facility] Last Admin: 03/08/18 22:03 Dose: 300 mg Furosemide (Lasix Injection -) 20 mg IVPUSH DAILY [facility] Last Admin: 03/08/18 09:48 Dose: 20 mg Lactobacillus Acidophilus (Bacid -) 1 tab PO DAILY [facility] Latanoprost (Xalatan 0.005% Eye Drops -) 1 drop OU HS [facility] Last Admin: 03/08/18 23:10 Dose: 1 drp Rivastigmine (Exelon Patch 9.5 Mg/24 Hours -) 1 each TD DAILY [facility] Senna (Senna -) 1 tab PO HS [facility] Last Admin: 03/08/18 22:03 Dose: 1 tab - Objective Vital Signs: Vital Signs Temperature 97.7 F 03/09/18 06:00 Pulse Rate 65 03/09/18 06:00 Respiratory Rate 18 03/09/18 06:00 Blood Pressure 133/76 03/09/18 06:00 O2 Sat by Pulse Oximetry (%) 96 03/09/18 01:20 Labs: CBC, BMP 03/09/18 06:00 03/09/18 06:00
[2018-03-09] MEDS ORDERED: LACTOBACILLUS ACIDOPHILUS 1 TABLET PO SCH (10:00)
[2018-03-09] MEDS ORDERED: RIVASTIGMINE 9.5 MG/24 HOURS TRANSDERMAL PATCH TD SCH (10:00)
[2018-03-09] MEDS ORDERED: CHOLECALCIFEROL (VITAMIN D3) 1,000 UNIT TABLET (FP) PO SCH (10:00)
[2018-03-09] MEDS ORDERED: PT OWN MED DRAWER 7, Y5N ONE ×2 (11:21→21:48)
[2018-03-09] MEDS: ACETAMINOPHEN 500 MG TABLET (FP) PO SCH ×2 (11:28→21:50)
[2018-03-09] MEDS: FUROSEMIDE 40 MG/4 ML INJECTABLE VIAL IVPUSH SCH (11:29)
--- NOTE | 2018-03-09 13:14 | PN ---
Progress Note (short form) - Note Progress Note: sitting in chair was observed walking this am -- poor gait needs assitance will have PT eval in the am probable d/c home with PT at [facility] Vital Signs Period Temp Pulse Resp BP Sys/Etienne Pulse Ox Last 24 Hr 97.7 F-98.3 F 65-104 18-20 130-135/69-86 96-96 no facial asymmetry speech is clear moves all extremities no motor deficits neck supple heart S1/S2 reg lungs clear bilat abd soft non tender ext no edema Microbiology 03/07/18 23:55 Urine - Urine Clean Catch Urine Culture - Final NO GROWTH OBTAINED Active Medications Acetaminophen (Tylenol -) 500 mg PO BID [facility] Last Admin: 03/09/18 11:28 Dose: 500 mg Cholecalciferol (Vitamin D3 -) 2,000 unit PO DAILY [facility] Last Admin: 03/09/18 11:28 Dose: 2,000 unit Docusate Sodium (Colace -) 300 mg PO HS [facility] Last Admin: 03/08/18 22:03 Dose: 300 mg Furosemide (Lasix Injection -) 20 mg IVPUSH DAILY [facility] Last Admin: 03/09/18 11:29 Dose: 20 mg Lactobacillus Acidophilus (Bacid -) 1 tab PO DAILY [facility] Last Admin: 03/09/18 11:29 Dose: 1 tab Latanoprost (Xalatan 0.005% Eye Drops -) 1 drop OU HS [facility] Last Admin: 03/08/18 23:10 Dose: 1 drp Rivastigmine (Exelon Patch 9.5 Mg/24 Hours -) 1 each TD DAILY [facility] Last Admin: 03/09/18 11:30 Dose: 1 each Senna (Senna -) 1 tab PO HS [facility] Last Admin: 03/08/18 22:03 Dose: 1 tab # Demetia baseline ? behavior changes 2/2/ too metabolic process appreciate neuro eval # Unsteady gait PT eval out patient PT Problem List - Problems (1) Dementia Code(s): F03.90 - UNSPECIFIED DEMENTIA WITHOUT BEHAVIORAL DISTURBANCE (2) Altered mental status Code(s): R41.82 - ALTERED MENTAL STATUS, UNSPECIFIED Qualifiers: Altered mental status type: disorientation Qualified Code(s): R41.0 - Disorientation, unspecified (3) Frequent falls Code(s): R29.6 - REPEATED FALLS (4) Generalized weakness Code(s): R53.1 - WEAKNESS
--- NOTE | 2018-03-09 19:09 | EKG ---
Test Reason : Blood Pressure : / mmHG Vent. Rate : 063 BPM Atrial Rate : 063 BPM P-R Int : 182 ms QRS Dur : 062 ms QT Int : 416 ms P-R-T Axes : 072 -17 022 degrees QTc Int : 425 ms NORMAL SINUS RHYTHM POSSIBLE ANTERIOR INFARCT (CITED ON OR BEFORE 08-MAR-2018) ABNORMAL ECG WHEN COMPARED WITH ECG OF 04-DEC-2017 23:49, T WAVE VARIATION Confirmed by TAMMY SYED, HALI ([id number]) on 03/09/2018 7:08:22 PM Referred By: Confirmed By:HALI MUNOZ MD
[2018-03-09] MEDS: DOCUSATE SODIUM 100 MG CAPSULE (FP) PO SCH (21:50)
[2018-03-09] MEDS: LATANOPROST 0.005% OPHTH SOLN 2.5ML BOTTLE OU SCH (21:51)
[2018-03-09] MEDS: SENNOSIDES 8.6MG TABLET (FP) PO SCH (21:51)
[2018-03-10 07:40] LABS: BASO % 0.6 % (0-2.0); EOS % 1.9 % (0-4.5); HEMATOCRIT 36.6 % (32.4-45.2); HEMOGLOBIN 12.2 GM/dL (10.7-15.3); LYMPH % 23.8 % (8-40); MCH 30.8 pg (25.7-33.7); MCHC 33.2 g/dl (32.0-36.0); MEAN CELL VOLUME 92.9 fl (80-96); MONO % 8.1 % (3.8-10.2); NEUT % 65.6 % (42.8-82.8); PLATELET COUNT 181 K/MM3 (134-434); RBC 3.94 M/mm3 (3.60-5.2); RDW 12.9 % (11.6-15.6); WHITE BLOOD COUNT 5.5 K/mm3 (4.0-10.0)
[2018-03-10 08:27] LABS: ANION GAP 8 MMOL/L (8-16); BLOOD UREA NITROGEN 14 mg/dL (7-18); CHLORIDE 104 mmol/L (98-107); CO2 30 mmol/L (21-32); CREATININE 0.7 mg/dL (0.55-1.3); GLUCOSE,RANDOM 90 mg/dL (74-106); POTASSIUM 3.5 mmol/L (3.5-5.1); SODIUM 142 mmol/L (136-145)
--- NOTE | 2018-03-10 09:45 | DS ---
Physical Examination Vital Signs: Vital Signs Temperature 98.0 F 03/10/18 05:00 Pulse Rate 58 L 03/10/18 05:00 Respiratory Rate 18 03/10/18 05:00 Blood Pressure 116/50 L 03/10/18 05:00 O2 Sat by Pulse Oximetry (%) 96 03/09/18 17:00 Findings/Remarks: 82 y/o female presenting to [facility] ER via ambulance from [facility] with concern for altered mental status. Nursing facility paperwork noted reason for transfer as: AMS, evidenced by increased confusion, stripping naked, weakness, leaning on her right side. Note also indicates pt is receiving macrobid for UTI. Pt herself reports no complaints. States she only feels uncomfortable because she is in the hospital. # Demetia baseline ? behavior changes/ no metabolic process identified CT of head - with no acute changes U/A negative labs unremarkable findings discussed with daughter 03/09/18 appreciate neuro consult # Unsteady gait due to lack of capacity will require greater supervision for safety out patient PT may be beneficial Constitutional: Yes: Well Nourished, No Distress, Calm Eyes: Yes: Conjunctiva Clear, EOM Intact HENT: Yes: Atraumatic, Normocephalic Neck: Yes: Supple, Trachea Midline Cardiovascular: Yes: Regular Rate and Rhythm Respiratory: Yes: CTA Bilaterally Gastrointestinal: Yes: Normal Bowel Sounds ...Rectal Exam: Yes: Deferred Renal/: Yes: WNL Breast(s): Yes: WNL Musculoskeletal: Yes: WNL Extremities: Yes: WNL, Delayed Capillary Refill. No: Cyanosis, Deformity Edema: No Peripheral Pulses WNL: Yes Integumentary: Yes: WNL Neurological: Yes: Confusion, Pre-Existing Deficit, Unsteady Gait Psychiatric: Yes: Alert Labs: CBC, BMP 03/10/18 05:50 03/10/18 05:50 Discharge Summary Reason For Visit: ALTERED MENTAL STATUS Current Active Problems Altered mental status (Acute) Dementia (Acute) Condition: Stable - Instructions Diet, Activity, Other Instructions: physical therapy as out patirnt Unsteady gait Ct of Head on admission with no acute changes Labs / U/a unremarkable Referrals: Anaya Joshi [Primary Care Provider] - Disposition: HOME - Home Medications Comprehensive Discharge Medication List: Ambulatory Orders Travoprost [Travatan Z] 2.5 ml OP ASDIR 01/03/17 Acetaminophen [Mapap] 500 mg PO BID 12/04/17 Cholecalciferol (Vitamin D3) [Vitamin D3] 2,000 unit PO DAILY 12/04/17 Famotidine 20 mg PO BID 12/04/17 Rivastigmine [Exelon Patch 9.5 mg/24 Hours -] 1 each TD DAILY 12/04/17 Sennosides [Senna] 8.6 mg PO HS 12/04/17 Docusate Sodium [Colace -] 300 mg PO HS 12/06/17 Lactobacillus Acidophilus [Bacid -] 1 tab PO DAILY #30 tab 12/07/17
[2018-03-10 09:53] VITALS: BP 100/54; PULSE 90; TEMP 98.1
== END 2018-03-10 09:54 ==
LOC: JER 23:20 → JERBED 03-08 02:19 → J6S 03-08 06:12
PROVIDERS: ADMIT Family Medicine; ATTEND Family Medicine
PROC: 3E033GC Introduction of Other Therapeutic Substance into Peripheral Vein, Percutaneous Approach (ICD-10-PCS; principal; 2018-03-08)
DX: R41.82 Altered mental status, unspecified (principal); E86.0 Dehydration; N39.0 Urinary tract infection, site not specified; G30.9 Alzheimer's disease, unspecified; F02.80 Dementia in other diseases classified elsewhere, unspecified severity, without behavioral disturbance, psychotic disturbance, mood disturbance, and anxiety; R29.6 Repeated falls; R53.1 Weakness; H40.9 Unspecified glaucoma; Z87.891 Personal history of nicotine dependence; Z88.2 Allergy status to sulfonamides
CPT/HCPCS: 36415; 70450-TC; 71045-TC-FY; 80048; 80053; 81003; 83880; 85025; 87086; 93005; 93010; 96374; 99284-25; G0378